=== PATIENT | female | born 1965 | race Caucasian/White ===

== ENCOUNTER → 2017-05-08 | Outpatient (CLI) | payer OTHER ==
[~2017-05-08] MED LIST: ATEN50TA2 PO; CENTTAB12 PO; CYCL10TA PO; DULE200A; GLYB25TA PO; LANS30CA PO; LISI-542 PO; MAXZTA PO; METF10004 PO; PREM.6256 PO; PROAAER10 INH; ZYRT10CA PO
--- NOTE | 2017-05-08 13:19 | REP ---
RENAL ULTRASOUND WITH DUPLEX DOPPLER RENAL ARTERY EVALUATION: Real-time sonographic evaluation of the kidney is performed and demonstrates both kidneys to be normal in size and echotexture, right kidney measuring 10.5 x 4.4 x 5.4 cm and the left kidney 11.4 x 5.0 x 4.6 cm. There is no renal mass, hydronephrosis or nephrolithiasis identified. The urinary bladder is mildly distended and grossly unremarkable. Real-time sonographic evaluation and duplex Doppler interrogation of the renal arteries is performed bilaterally. Peak sytolic velocity of the abdominal aorta at the level of the renal arteries is 74 cm/s. Peak systolic velocity of the main right renal artery at is origin is 128 cm/s, renal to aortic ratio 1.73. Resistive indices are measured in the upper, middle, and lower thirds of the right kidney and range between 0.65 and 0.68. Acceleration times range between 0.030 and 0.038. Peak systolic velocity of the main left renal artery at its origin is 146 cm/s, renal to aortic ratio is 1.97. Resistive indices of the left kidney range between 0.66 and 0.75. Acceleration times range between 0.037 and 0.043. IMPRESSION: Essentially negative renal ultrasound. There is no compelling duplex Doppler sonographic evidence of significant renal artery stenosis bilaterally. Signed by Rylan Junior MD 05/08/2017 05:00 P
== END ==
LOC: M RAD 07:38
PROVIDERS: ATTEND Internal Medicine Nephrology
DX: I12.9 Hypertensive chronic kidney disease with stage 1 through stage 4 chronic kidney disease, or unspecified chronic kidney disease (principal); N18.3 Chronic kidney disease, stage 3 (moderate)

== ENCOUNTER → 2017-07-07 | Outpatient (REF) | payer OTHER ==
[2017-07-07 14:16] LABS: MAGNESIUM URINE RANDOM 6.5 MG/DL
== END ==
LOC: M LAB REF 13:21
PROVIDERS: ATTEND Internal Medicine Nephrology
DX: N18.3 Chronic kidney disease, stage 3 (moderate) (principal)

== ENCOUNTER → 2017-12-02 | Outpatient (REF) | payer OTHER ==
[2017-12-02 20:00] LABS: FERRITIN 6 NG/ML (8-252); IRON (FE) 34 UG/DL (50-170); PERCENT SATURATION 7.1 % (13.2-45.0); TOTAL IRON BINDING CAPACITY 482 UG/DL (250-450)
[2017-12-02 20:12] LABS: MAGNESIUM URINE RANDOM 6.6 MG/DL
== END ==
LOC: M LAB REF 17:04
DX: E83.42 Hypomagnesemia (principal); N18.3 Chronic kidney disease, stage 3 (moderate); D63.1 Anemia in chronic kidney disease
CPT/HCPCS: 83550

== ENCOUNTER → 2018-04-01 | Outpatient (REF) | payer OTHER ==
[2018-04-01 18:43] LABS: FERRITIN 11 NG/ML (8-252); IRON (FE) 46 UG/DL (50-170); PERCENT SATURATION 8.9 % (13.2-45.0); TOTAL IRON BINDING CAPACITY 514 UG/DL (250-450)
== END ==
LOC: M LAB REF 17:25
DX: N18.9 Chronic kidney disease, unspecified (principal); D63.1 Anemia in chronic kidney disease

== ENCOUNTER 2018-07-17 06:47 | Outpatient (CLI) | payer OTHER ==
[2018-07-17] MEDS: IRON SUCROSE 25 MG in NS 50 ML IV (07:50)
[2018-07-17] MEDS: IRON SUCROSE 275 MG in NS 250 ML IV (09:03)
== END 2018-07-17 12:35 | disposition home or self-care (01) ==
LOC: M INFU 06:47
DX: D50.9 Iron deficiency anemia, unspecified (principal); K21.9 Gastro-esophageal reflux disease without esophagitis; N18.9 Chronic kidney disease, unspecified; E11.9 Type 2 diabetes mellitus without complications; K52.831 Collagenous colitis; I12.9 Hypertensive chronic kidney disease with stage 1 through stage 4 chronic kidney disease, or unspecified chronic kidney disease; Z79.84 Long term (current) use of oral hypoglycemic drugs; Z79.899 Other long term (current) drug therapy
CPT/HCPCS: J1756

== ENCOUNTER → 2018-12-04 | Outpatient (REF) | payer OTHER ==
[~2018-12-04] MED LIST changes: +ALLO100T PO; +CHLO25TA PO; +GLYB5TA PO; +HYDR-3910 PO; +MAGN500C2 PO; +METO1TAB7 PO; +PRED20TA PO; +SODI650T PO; +SPIR-10 PO
[2018-12-04 17:58] LABS: PERCENT SATURATION 18.7 % (13.2-45.0)
== END ==
LOC: M LAB REF 16:59
PROVIDERS: ATTEND Internal Medicine Nephrology
DX: D64.9 Anemia, unspecified (principal)

== ENCOUNTER → 2019-05-05 | Outpatient (CLI) | payer OTHER ==
--- NOTE | 2019-05-05 20:10 | REP ---
Chest x-ray: Two views. History: Mild asthma. Wheezing. No comparison study. Findings: The lungs are symmetrically aerated. Interstitial markings are somewhat prominent diffusely consistent with mild interstitial edema or. Heart is not enlarged. There is no pleural effusion visible. There is an old healed rib fracture on the right. Impression: Diffuse interstitial disease pattern in the bases bilaterally that nonspecific. Edema versus fibrosis. No focal infiltrate is appreciated. Electronically Signed by Alcon Dutton MD 05/05/2019 08:02 P
== END ==
LOC: M SMT 15:01
PROVIDERS: ATTEND Internal Medicine Pulmonary Disease
DX: J45.20 Mild intermittent asthma, uncomplicated (principal)

== ENCOUNTER → 2019-05-13 | Outpatient (REF) | payer OTHER ==
[~2019-05-13] MED LIST changes: +ALBU83IN NEB; +ALL10TAB29 PO; +ASPI81TAEC PO; +ATOR1TAB21 PO; +ATOR40TA75 PO; +BREO1INH3 INH; +CBD OIL TOP; +CENT1TAB9 PO; +CINN500C2 PO; +FLUT22IN INH; +FLUTISP NARES; +IPRA3SP; +IPRA3SP NARES; +LISI10TA4 PO; +MAG400TA PO; +MAGN400T2 PO; +METO50TA7 PO; +PREM0.6254 PO; +TORS20TA2 PO; +TRES100I SC; +TRIA1OI TOP; +TRIA1OI80 TOP; +TRUL10IN SC; +ZYLO300T6 PO
== END ==
LOC: M LAB REF 13:27
PROVIDERS: ATTEND Physician Assistant
DX: R06.00 Dyspnea, unspecified (principal)

== ENCOUNTER 2019-07-01 16:14 | Inpatient (IN) | payer OTHER ==
[~2019-07-01] VITALS: Ht 154.9 cm; Wt 64.5 kg
[~2019-07-01 16:14] MED LIST changes: -ALBU83IN NEB; -ALL10TAB29 PO; -ASPI81TAEC PO; -ATOR1TAB21 PO; -BREO1INH3 INH; -CBD OIL TOP; -CENT1TAB9 PO; -FLUT22IN INH; -FLUTISP NARES; -IPRA3SP NARES; -MAG400TA PO; -PREM0.6254 PO; -TRIA1OI TOP; -TRIA1OI80 TOP
[2019-07-01] MEDS ORDERED: NS 1,000 ML IV SCH (16:38)
[2019-07-01 17:18] LABS: BASO # 0.1 10^3/uL (0.0-0.2); BASO % 0.9 % (0.0-1.0); EOS # 0.4 10^3/uL (0.0-0.5); EOS % 3.4 % (0.0-3.0); HEMATOCRIT 33.8 % (36.0-47.0); HEMOGLOBIN 10.7 g/dl (12.0-15.5); LYMPH # 2.7 10^3/uL (1.5-5.0); LYMPH % 23.7 % (24.0-44.0); MEAN CORPUSCULAR HEMOGLOBIN 27.6 pg (27.0-33.0); MEAN CORPUSCULAR HGB CONC 31.7 g/dl (32.0-36.5); MEAN CORPUSCULAR VOLUME 87.3 fl (80.0-96.0); MONO # 0.8 10^3/uL (0.0-0.8); MONO % 6.6 % (0.0-5.0); NEUTROPHILS # 7.4 10^3/uL (1.5-8.5); NEUTROPHILS % 65.1 % (36.0-66.0); PLATELET COUNT, AUTOMATED 387 10^3/uL (150-450); RED BLOOD COUNT 3.87 10^6/uL (4.00-5.40); WHITE BLOOD COUNT 11.4 10^3/uL (4.0-10.0)
[2019-07-01] MEDS ORDERED: TRIA1OI TOP (17:39)
[2019-07-01] MEDS ORDERED: TRIA1OI80 TOP (17:39)
[2019-07-01 17:51] LABS: ALBUMIN 3.5 GM/DL (3.2-5.2); BILIRUBIN,DIRECT 0.1 MG/DL (0.0-0.2); BILIRUBIN,TOTAL 0.4 MG/DL (0.2-1.0); CALCIUM LEVEL 9.4 MG/DL (8.5-10.1); CREATININE FOR GFR 1.37 MG/DL (0.55-1.30); GLOMERULAR FILTRATION RATE 42.8 (>51); MB/CK RELATIVE INDEX 2.07 (< OR =4); POTASSIUM SERUM 4.3 MEQ/L (3.5-5.1); THYROID STIMULATING HORMONE 3.21 uIU/ML (0.358-3.740); TOTAL PROTEIN 6.8 GM/DL (6.4-8.2); TROPONIN I 0.11 NG/ML (< 0.10)
[2019-07-01] MEDS ORDERED: ISOVUE-370 76% 100ML VIAL (Q9967) As Ordered ONE (18:17)
--- NOTE | 2019-07-01 19:04 | REPVR ---
PROCEDURE INFORMATION: Exam: CT Angiography Chest With Contrast Exam date and time: 07/01/2019 6:29 PM Clinical history: 53 years old, female; Abnormal findings; Other: Elevated d-dimer; Shortness of breath; Additional info: SOB, elev d-dimer TECHNIQUE: Imaging protocol: Computed tomographic angiography of the chest with intravenous contrast. 3D rendering: MIP reconstructed images were created and reviewed. Radiation optimization: All CT scans at this facility use at least one of these dose optimization techniques: automated exposure control; mA and/or kV adjustment per patient size (includes targeted exams where dose is matched to clinical indication); or iterative reconstruction. Contrast material: ISOVUE 370; Contrast volume: 75 ml; Contrast route: IV; COMPARISON: CR CHEST 2 VIEWS 05/05/2019 3:18 PM FINDINGS: Pulmonary arteries: No focal pulmonary artery filling defect to suggest acute pulmonary embolus. Aorta: No abnormal dilatation of the thoracic aorta. Lungs: Pulmonary vascular/interstitial pattern does not suggest active pulmonary edema. No suspicious lung mass or air space process. No central endobronchial lesion. Pleural space: Small dependent bilateral transient density pleural effusions are present. No pneumothorax. Heart: Miniscule pericardial effusion and no overt cardiac enlargement. Lymph nodes: Small, nonspecific mediastinal nodes are present. Bones/joints: Bony structures show no acute fracture or destructive process. Soft tissues: No asymmetric abnormality of the extrathoracic soft tissues. IMPRESSION: 1. No evidence of acute pulmonary embolus. 2. Miniscule dependent bilateral pleural effusions without evidence of active pulmonary edema or focal pneumonia Electronically signed by: Sascha Smalls On 07/01/2019 19:04:12 PM
[2019-07-01] MEDS ORDERED: FLUTICASONE HFA 220 MCG 12 GM INHALER (FLOVENT) INH SCH (20:00)
[2019-07-01] MEDS ORDERED: GLUCOSE 4 GM CHEW TABLET PO PRN (20:30)
[2019-07-01] MEDS ORDERED: GLUCAGON FOR INJ 1 MG VIAL (J1610) SC PRN (20:30)
[2019-07-01] MEDS ORDERED: FUROSEMIDE 100 MG/10 ML VIAL (J1940) IV ONE (20:30)
[2019-07-01] MEDS ORDERED: MAALOX 30 ML SUSP *UDC PO PRN (20:30)
[2019-07-01] MEDS ORDERED: MOM 30ML SUSPENSION UDC PO PRN (20:30)
[2019-07-01] MEDS ORDERED: DEXTROSE 50% 50 ML SYRINGE IV PRN (20:30)
--- NOTE | 2019-07-01 20:45 | HPEPDOC ---
General Date of Admission 07/01/19 Date of Service: Jul 01, 2019 Chief Complaint The patient is a 53-year-old female admitted with a reason for visit of Sob/ Chest Tightness. Exam Limitations: No limitations Timing/Duration: Other Severity: Moderate (2-3 years) Associated Symptoms: Shortness of breath, Other (. Hoarseness of voice) History of Present Illness This is a pleasant 53 years old white female with past medical history of asthma as, COPD, CK-MB stage III, local cord dysfunction of unknown etiology, diabetes mellitus, has been experiencing shortness of breath since last 3 years and hoarseness and hoarseness of her Lantus since last 2-3 years. She is been under care with Dr. wild since last 6 months with asthma/COPD, but as per patient, the symptoms are not improving. On Friday, 2 days ago she had a pressure-like chest pain, nonradiating, persistent, associated with shortness of breath r esolved spontaneously after a few hours. No recurrence afterwards. Patient had a outpatient blood work done which showed d-dimer of 843, and patient was sent in the ED for CTA of chest to rule out pulmonary embolus.. CTA chest, essentially was negative for pulmonary embolus but considering patient's persistent symptoms bipedal edema and small pleural effusion. wanted this patient to be admitted for further workup including cardiac workup for CHF as patient has a elevated BNP as well. Patient denies chest pain at the present time, but persistent shortness of breath, no nausea, vomiting, no fever Home Medications Scheduled Allopurinol (Allopurinol) 100 Mg Tab, 300 MG PO DAILY, (Reported) Cannabidiol (Cbd Oil) Btl, 1,500 MG TOP DAILY, (Reported) USES ONE DROPPER DAILY FOR ARTHRITIS, TENDINITIS AND SLIPPED DISCS Cetirizine HCl (Cetirizine HCl) 10 Mg Tablet, 10 MG PO QHS, (Reported) Chlorthalidone (Chlorthalidone) 25 Mg Tab, 25 MG PO DAILY, (Reported) Estrogen,Con/M-Progest Acet (Prempro 0.625-5 mg Tablet) 1 Each Tablet, 0.5 TAB PO DAILY, (Reported) Fluticasone Propionate (Flovent Hfa) 220 Mcg/Act Aer.w.adap, 2 PUFF INH BID, (Reported) Fluticasone Propionate (Fluticasone Propionate) 16 Gm [place].susp, 2 SPRAY NARES BID, (Reported) Fluticasone/Vilanterol (Breo Ellipta 200-25 Mcg INH) 1 Each Blst.w.dev, 1 PUFF INH DAILY, (Reported) Glyburide (Glyburide) 5 Mg Tab, 5 MG PO DAILY, (Reported) Ipratropium [place] (Ipratropium [place]) 30 Ml [place], 1 SPRAY NARES BID, (Reported) Lansoprazole (Lansoprazole) 30 Mg Cap, 30 MG PO DAILY, (Reported) Lisinopril (Lisinopril) 5 Mg Tab, 5 MG PO DAILY, (Reported) Magnesium Oxide (Magnesium Oxide) 500 Mg Cap, 500 MG PO DAILY, (Reported) Magnesium Oxide (Magnesium Oxide) 500 Mg Capsule, 1,000 MG PO QPM, (Reported) Metformin HCl (Metformin HCl) 1,000 Mg Tab, 1,000 MG PO BID, (Reported) Metoprolol Succinate (Metoprolol Succinate) 50 Mg Tab, 50 TAB PO DAILY, (Reported) Multivit-Min/Iron/Folic/Lutein (Centrum [place] Tablet) 1 Each Tablet, 1 EACH PO DAILY, (Reported) Sodium Bicarbonate (Sodium Bicarbonate) 650 Mg Tab, 325 MG PO DAILY, (Reported) Spironolactone (Spironolactone) 25 Mg Tab, 25 MG PO QHS, (Reported) Triamcinolone Acet (Triamcinolone Acetonide 0.1% Oint) 15 Gm Oint...g., 1 APLCT TOP BID, (Reported) APPLY TO UNDERARMS FOR ECZEMA Scheduled PRN Albuterol Sulf (Albuterol Sulfate) 2.5 Mg/3 Ml Vial.neb, 1 VIAL NEB Q4HP PRN for wheezing, (Reported) Albuterol Sulfate (Proair Hfa) 108 Mcg/Act Aer, 1 PUFF INH Q4H PRN for SOB/WHEEZING, (Reported) Cyclobenzaprine HCl (Cyclobenzaprine HCl) 10 Mg Tab, 10 MG PO TID PRN for MUSCLE SPASMS, (Reported) Allergies Coded Allergies: Sulfa (Sulfonamide Antibiotics) (Verified Allergy, Unknown, 07/01/19) Past Medical History Medical History Asthma/COPD/C KD stage III/diabetes mellitus with hypertension/vocal cord Surgical History None Family History Significant Family History: No pertinent family hx Social History * Smoker: Denies Alcohol: Denies Drugs: denies A-FIB/CHADSVASC A-FIB History Current/History of A-Fib/PAF?: No Review of Systems Constitutional: Denies: Chills, Fever, Malaise, Night Sweats, Weakness, Fatigue, Weight Loss, Lethargy, Other Eyes: Denies: Pain, Vision change, Conjunctivae inflammation, Eyelid inflammation, Redness, Other ENT: Denies: Head Aches, Ear Pain, Dysphagia, Sinus Congestion, Post Nasal Drip, Sore Throat, Epistaxis, Other Symptoms Skin: Denies: Rash, Lesions, Jaundice, Bruising, Itching, Dry, Breakdown, Nail Changes, Other Pulmonary: Reports: Dyspnea Cardiovascular: Reports: Chest Pain Gastrointestinal: Denies: Nausea, Vomiting, Abdominal Pain, Diarrhea, Constipation, Melena, Hematochezia, Other Symptoms Genitourinary: Denies: Dysuria, Frequency, Incontinence, Hematuria, Retention, Other Symptoms Endocrine: Denies: Polydipsia, Polyphagia, Polyuria, Heat Intolerance, Cold Intolerance, Other Endocrine Sx Musculoskeletal: Denies: Neck Pain, Back Pain, Shoulder Pain, Arm Pain, Hand Pain, Leg Pain, Foot Pain, Joint Pain, Muscle Pain, Spasms, Other Symptoms Neurological: Denies: Weakness, Numbness, Incoordination, Change in speech, Confusion, Seizures, Other Symptoms Psych: Denies: Mood Normal, Anxiety, Depression, Memory Issues, Thoughts of Self Harm, Anger, Thoughts of Harming Other, Other Psych Physical Examination General Exam: Positive: Alert, Cooperative, Other (hoarseness otherwise noted) Eye Exam: Positive: PERRLA, Conjunctiva & lids normal ENT Exam: Positive: Atraumatic, Mucous membr. moist/pink, Other ENT (hoarseness of voice noted) Neck Exam: Positive: Supple Chest Exam: Positive: Diminished, Other (. Diminished breath sounds bilaterally but no wheezing, rales or rhonchi) Heart Exam: Positive: Rate Normal, Normal S1, Normal S2 Telemetry: Positive: Tachycardia Abdomen Exam: Positive: Normal bowel sounds, Soft Extremity Exam: Positive: Edema (1-2+ bipedal edema) Skin Exam: Positive: Nl turgor and temperature Neuro Exam: Positive: Normal Gait, Strength at 5/5 X4 ext, Sensation Intact Psych Exam: Positive: Mental status NL, Mood NL, Oriented x 3 Vital Signs Vital Signs Date Time Temp Pulse Resp B/P (MAP) Pulse Ox O2 Delivery O2 Flow Rate FiO2 07/01/19 17:15 Room Air 07/01/19 17:15 07/01/19 16:16 97.3 125 32 99 Laboratory Data Labs 24H Laboratory Tests 2 07/01/19 17:07: Immature Granulocyte % (Auto) 0.3, White Blood Count 11.4H, Red Blood Count 3.87L, Hemoglobin 10.7L, Hematocrit 33.8L, Mean Corpuscular Volume 87.3, Mean Corpuscular Hemoglobin 27.6, Mean Corpuscular Hemoglobin Concent 31.7L, Red Cell Distribution Width 13.9, Platelet Count 387, Neutrophils (%) (Auto) 65.1, Lymphocytes (%) (Auto) 23.7L, Monocytes (%) (Auto) 6.6H, Eosinophils (%) (Auto) 3.4H, Basophils (%) (Auto) 0.9, Neutrophils # (Auto) 7.4, Lymphocytes # (Auto) 2.7, Monocytes # (Auto) 0.8, Eosinophils # (Auto) 0.4, Basophils # (Auto) 0.1, Nucleated Red Blood Cells % (auto) 0.0, Anion Gap 10, Glomerular Filtration Rate 42.8L, Calcium Level 9.4, Aspartate Amino Transf (AST/SGOT) 55H, Alanine Aminotransferase (ALT/SGPT) 84H, Alkaline Phosphatase 71, Total Bilirubin 0.4, Direct Bilirubin 0.1, Total Creatine Kinase 241H, Creatine Kinase MB 5.0H, Creatine Kinase MB Relative Index 2.07, Troponin I 0.11H, FQ-Fvm-A-Type Natriuretic Peptide 3380H, Total Protein 6.8, Albumin 3.5, Albumin/Globulin Ratio 1.06, Thyroid Stimulating Hormone (TSH) 3.210 CBC/BMP Laboratory Tests 07/01/19 17:07 Red Blood Count 3.87 L, Mean Corpuscular Volume 87.3, Mean Corpuscular Hemoglobin 27.6, Mean Corpuscular Hemoglobin Concent 31.7 L, Red Cell Distribution Width 13.9, Neutrophils (%) (Auto) 65.1, Lymphocytes (%) (Auto) 23.7 L, Monocytes (%) (Auto) 6.6 H, Eosinophils (%) (Auto) 3.4 H, Basophils (%) (Auto) 0.9, Neutrophils # (Auto) 7.4, Lymphocytes # (Auto) 2.7, Monocytes # (Auto) 0.8, Eosinophils # (Auto) 0.4, Basophils # (Auto) 0.1 Problems (1) Chest pain Status: Acute Problem Text: 53 years old white female with past medical history of hypertension, diabetes mellitus, CK D3. Asthma, COPD, had developed chest pain on the eighth of this month, which had resolved spontaneously, but she is still complaining of consistent shortness of breath, which been present since last 2-3 years but has been getting worse since last 6 months. Considering multiple medical risk factors for CAD Admit patient under observation to PCU Telemetry monitoring Serial troponin Echocardiogram in a.m. Stat EKG has been ordered Stat chest x-ray has been ordered Closely monitor patient Lovenox for DVT prophylaxis Carbohydrate consistent Activity as tolerated (2) Shortness of breath Status: Acute Problem Text: Patient is under care with Dr. wild for asthma/COPD/br onchiectasis . She was sent pain with high d-dimer levels but she has ruled out pulmonary embolus on the basis of CT of chest Or shortness of breath, most likely secondary to asthma and COPD, but she also doesn't have a vocal cord dysfunction and bilateral pleural effusions with with bilateral pedal edema Echocardiogram has been ordered to rule out cor pulmonale as well Will stop all IV fluids Will give Lasix 60 mg IV 1 Monitor I&O's Continue home meds (3) Bilateral pleural effusion Status: Acute Problem Text: Patient has no history of CAD Bilateral effusion was seen on CTA chest Stat chest x-ray and EKG has been ordered IV diuretic 1 dose has been ordered (4) Vocal cord dysfunction Status: Chronic Problem Text: Patient has local card dysfunction as a last 2-3 years , She probably will benefit from ENT consultation. Please consider calling ENT consult in a.m. for direct laryngoscopy (5) CKD (chronic kidney disease), stage III Status: Chronic Problem Text: History of C KD stage III secondary to diabetes mellitus Continue home meds Monitor BUN/creatinine (6) Diabetes mellitus Status: Chronic Problem Text: Continue home meds And gastric blood sugar every before meals and at bedtime with coverage (7) HTN (hypertension) Status: Chronic Problem Text: Continue home meds Plan / VTE VTE Prophylaxis Ordered?: Yes JAREN MARTE MD Jul 01, 2019 20:45
[2019-07-01] MEDS: IPRATROPIUM 0.03% NASAL SPRAY 30 ML (ATROVENT) SCH (21:00)
[2019-07-01] MEDS: FLUTICASONE PROP 0.05% NASAL SPRAY 16 GM (FLONASE) NARES SCH (21:00)
[2019-07-01] MEDS ORDERED: metFORMIN (GLUCOPHAGE) 1000 MG TABLET PO SCH (21:00)
[2019-07-01] MEDS: HumaLOG INSULIN (NovoLOG) PER UNIT SC SCH (21:00)
[2019-07-01] MEDS: DOCUSATE SODIUM 100 MG CAP PO SCH (21:00)
[2019-07-01] MEDS: TRIAMCINOLONE ACET 0.1% OINTMENT 15 GM TOP SCH (21:00)
[2019-07-01] MEDS ORDERED: ALL10TAB29 PO (21:03)
[2019-07-01] MEDS ORDERED: FLUTISP NARES (21:03)
[2019-07-01] MEDS ORDERED: IPRA3SP NARES (21:03)
[2019-07-01] MEDS ORDERED: BREO1INH3 INH (21:03)
[2019-07-01] MEDS ORDERED: FLUT22IN INH (21:03)
[2019-07-01] MEDS ORDERED: CBD OIL TOP (21:03)
[2019-07-01] MEDS ORDERED: MAGN500C2 PO (21:03)
[2019-07-01] MEDS ORDERED: PREM0.6254 PO (21:03)
[2019-07-01] MEDS ORDERED: CENT1TAB9 PO (21:03)
[2019-07-01] MEDS ORDERED: ALBU83IN NEB (21:03)
[2019-07-01 21:30] VITALS: BP 153/93
[2019-07-01 21:50] VITALS: BP 130/84
[2019-07-01 22:25] VITALS: BP 130/84
[2019-07-01 23:54] LABS: CK-MB VALUE MASS 4.3 NG/ML (<3.6); MB/CK RELATIVE INDEX 2.02 (< OR =4); TROPONIN I 0.1 NG/ML (< 0.10)
[2019-07-01 23:59] VITALS: BP 131/82
[2019-07-02] MEDS ORDERED: CYCLOBENZAPRINE 10 MG TAB PO PRN (01:15)
[2019-07-02] MEDS ORDERED: ALBUTEROL SULFATE 2.5 MG/0.5 ML INH NEB SOLN NEB PRN (01:15)
[2019-07-02] MEDS ORDERED: ALBUTEROL 90 MCG/ACT 8GM HFA INHALER INH PRN (01:15)
[2019-07-02] MEDS: ACETAMINOPHEN TAB 650MG DOSE (2X325MG) PO PRN ×2 (01:37→20:38)
[2019-07-02] MEDS: CETIRIZINE (ZyrTEC) 10 MG TAB PO SCH ×2 (01:38→20:23)
[2019-07-02] MEDS: SPIRONOLACTONE 25 MG TAB PO SCH ×2 (01:38→20:23)
[2019-07-02 03:25] LABS: HEMATOCRIT 32.1 % (36.0-47.0); HEMOGLOBIN 10.4 g/dl (12.0-15.5); MEAN CORPUSCULAR HEMOGLOBIN 28.3 pg (27.0-33.0); MEAN CORPUSCULAR HGB CONC 32.4 g/dl (32.0-36.5); MEAN CORPUSCULAR VOLUME 87.2 fl (80.0-96.0); PLATELET COUNT, AUTOMATED 337 10^3/uL (150-450); RED BLOOD COUNT 3.68 10^6/uL (4.00-5.40); WHITE BLOOD COUNT 9.7 10^3/uL (4.0-10.0)
[2019-07-02 03:45] LABS: ALBUMIN 3.3 GM/DL (3.2-5.2); BILIRUBIN,TOTAL 0.4 MG/DL (0.2-1.0); CREATININE FOR GFR 1.52 MG/DL (0.55-1.30); GLOMERULAR FILTRATION RATE 37.9 (>51); POTASSIUM SERUM 4.2 MEQ/L (3.5-5.1); TOTAL PROTEIN 6.4 GM/DL (6.4-8.2); TROPONIN I 0.09 NG/ML (< 0.10)
[2019-07-02 04:00] VITALS: BP 129/84
--- NOTE | 2019-07-02 07:35 | ECGEPIP ---
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
--- NOTE | 2019-07-02 07:49 | REP ---
PA and lateral chest: Comparison is 05/05/2019. The lung rodriguez are clear. Cardiac size is mildly enlarged. The raghav, mediastinum, skeletal structures are unremarkable. Impression: Mild cardiomegaly, otherwise negative chest. Electronically Signed by Rylan Orozco MD 07/02/2019 07:40 A
[2019-07-02 08:00] VITALS: BP 142/92
[2019-07-02] MEDS ORDERED: FLUTICASONE HFA 220 MCG 12 GM INHALER (FLOVENT) INH SCH (09:00)
[2019-07-02] MEDS: DOCUSATE SODIUM 100 MG CAP PO SCH ×3 (09:00→20:27)
[2019-07-02] MEDS ORDERED: MAGNESIUM OXIDE 400 MG TAB (MAG-OX) PO SCH (09:00)
[2019-07-02] MEDS ORDERED: LISINOPRIL 5 MG TAB PO SCH (09:00)
[2019-07-02] MEDS: IPRATROPIUM 0.03% NASAL SPRAY 30 ML (ATROVENT) SCH ×2 (09:16→20:25)
[2019-07-02] MEDS: HumaLOG INSULIN (NovoLOG) PER UNIT SC SCH ×4 (09:16→20:39)
[2019-07-02] MEDS: FLUTICASONE PROP 0.05% NASAL SPRAY 16 GM (FLONASE) NARES SCH ×2 (09:17→20:24)
[2019-07-02] MEDS: PANTOPRAZOLE 20 MG TAB PO SCH (09:17)
[2019-07-02] MEDS: SODIUM BICARBONATE 325 MG TAB PO SCH (09:17)
[2019-07-02] MEDS: ALLOPURINOL 100 MG TAB PO SCH (09:17)
[2019-07-02] MEDS: METOPROLOL SUCC (TopROL XL) 50MG **XL** TAB PO SCH (09:18)
[2019-07-02] MEDS: TRIAMCINOLONE ACET 0.1% OINTMENT 15 GM TOP SCH ×2 (09:19→20:26)
[2019-07-02] MEDS: ENOXAPARIN 40 MG/0.4 ML SYRINGE (J1650) SC SCH (09:19)
[2019-07-02] MEDS: FUROSEMIDE 20 MG/2 ML VIAL (J1940) IV SCH ×2 (11:51→16:50)
--- NOTE | 2019-07-02 13:09 | IPNPDOC ---
Text Note Date of Service The patient was seen on 07/02/19. NOTE Subjective: Patient continues to complain of mild shortness of breath on exe rtion. She denies fever, chills, nausea, vomiting, palpitations, diarrhea or dysuria Objective: General Exam: Positive: Alert, Cooperative, Other (hoarseness otherwise noted) Eye Exam: Positive: PERRLA, Conjunctiva & lids normal ENT Exam: Positive: Atraumatic, Mucous membr. moist/pink, Other ENT (hoarseness of voice noted) Neck Exam: Positive: Supple Chest Exam: Positive: Diminished, Other (. Diminished breath sounds bilaterally but no wheezing, rales or rhonchi) Heart Exam: Positive: Rate Normal, Normal S1, Normal S2 Telemetry: Positive: Tachycardia Abdomen Exam: Positive: Normal bowel sounds, Soft Extremity Exam: Positive: Edema (1-2+ bipedal edema) Skin Exam: Positive: Nl turgor and temperature Neuro Exam: Positive: Normal Gait, Strength at 5/5 X4 ext, Sensation Intact Psych Exam: Positive: Mental status NL, Mood NL, Oriented x 3 Assessment/Plan Problems (1) Chest pain Resolved EKG did not show acute ischemic changes Troponin was mildly elevated on admission most likely secondary to demand ischemia. Trended down Status: Acute Echocardiogram pending (2) Shortness of breath Most likely due to CHF exacerbation. Patient never been diagnosed with CHF however BNP was elevated, and she has leg swelling, CTA showed bilateral pleural effusion. Also patient has most likely vocal cord dysfunction. ENT consult ordered Echo Lasix IV Monitor I&O's Continue home meds (3) Bilateral pleural effusion Most likely secondary to CHF exacerbation see above (4) Vocal cord dysfunction Status: Chronic ENT consult pending (5) CKD (chronic kidney disease), stage III Status: Chronic Problem Text: History of C KD stage III secondary to diabetes mellitus Continue home meds Monitor BUN/creatinine (6) Diabetes mellitus Glucose levels under control Status: Chronic Problem Text: Continue home meds And gastric blood sugar every before meals and at bedtime with coverage (7) HTN (hypertension) Status: Chronic Problem Text: Continue home meds Asthma Not in acute exacerbation Continue inhalers VS,Fishbone, I+O VS, Fishbone, I+O Laboratory Tests 07/01/19 17:07 Red Blood Count 3.87 L, Mean Corpuscular Volume 87.3, Mean Corpuscular Hemoglobin 27.6, Mean Corpuscular Hemoglobin Concent 31.7 L, Red Cell Distribution Width 13.9, Neutrophils (%) (Auto) 65.1, Lymphocytes (%) (Auto) 23.7 L, Monocytes (%) (Auto) 6.6 H, Eosinophils (%) (Auto) 3.4 H, Basophils (%) (Auto) 0.9, Neutrophils # (Auto) 7.4, Lymphocytes # (Auto) 2.7, Monocytes # (Auto) 0.8, Eosinophils # (Auto) 0.4, Basophils # (Auto) 0.1 07/02/19 03:06 Red Blood Count 3.68 L, Mean Corpuscular Volume 87.2, Mean Corpuscular Hemoglobin 28.3, Mean Corpuscular Hemoglobin Concent 32.4, Red Cell Distribution Width 13.8, Calcium Level 9.0, Aspartate Amino Transf (AST/SGOT) 44 H, Alanine Aminotransferase (ALT/SGPT) 75, Alkaline Phosphatase 63, Total Bilirubin 0.4, Total Protein 6.4, Albumin 3.3 Vital Signs Date Time Temp Pulse Resp B/P (MAP) Pulse Ox O2 Delivery O2 Flow Rate FiO2 07/02/19 09:18 99 142/92 07/02/19 08:00 98.0 17 99 07/01/19 17:15 Room Air I&O- Last 24 Hours up to 6 AM 07/02/19 06:00 Intake Total 140 ml Output Total 2120 ml Balance -1980 ml DINORAH MARIN DO Jul 02, 2019 13:09
[2019-07-02 16:00] VITALS: BP 152/84
[2019-07-02] MEDS: MAGNESIUM OXIDE 400 MG TAB (MAG-OX) PO SCH (16:50)
[2019-07-02] MEDS ORDERED: glyBURIDE 2.5 MG TAB PO SCH (17:30)
[2019-07-02] MEDS ORDERED: ISOVUE-370 76% 100ML VIAL (Q9967) As Ordered ONE (18:38)
--- NOTE | 2019-07-02 19:13 | REPVR ---
PROCEDURE INFORMATION: Exam: CT Neck With Contrast Exam date and time: 07/02/2019 6:53 PM Clinical history: 53 years old, female; Other: Malignancy TECHNIQUE: Imaging protocol: Computed tomography images of the neck with intravenous contrast. Radiation optimization: All CT scans at this facility use at least one of these dose optimization techniques: automated exposure control; mA and/or kV adjustment per patient size (includes targeted exams where dose is matched to clinical indication); or iterative reconstruction. Contrast material: ISOVUE 370; Contrast volume: 75 ml; Contrast route: IV; COMPARISON: No relevant prior studies available. FINDINGS: Nasopharynx: Unremarkable. Oropharynx: Unremarkable. No significant tonsillar enlargement. Hypopharynx: Unremarkable Larynx: Unremarkable. Normal epiglottis. Retropharyngeal space: Unremarkable. Submandibular/Parotid glands: Normal. Glands are normal in size. Thyroid: Normal. No enlarged or calcified nodules. Lymph nodes: Unremarkable. No lymphadenopathy. Trachea: Visualized trachea is unremarkable. Lungs: Unremarkable as visualized. Bones/joints: Unremarkable. No acute fracture. Soft tissues: Unremarkable. No significant soft tissue swelling. IMPRESSION: No mass, adenopathy, or fluid collection. Electronically signed by: Young Thorne On 07/02/2019 19:13:24 PM
[2019-07-02 20:00] VITALS: BP 154/78
[2019-07-02] MEDS: ASPIRIN 81 MG ENTERIC TAB PO SCH (20:28)
[2019-07-03] VITALS: BP 118/69
[2019-07-03 04:00] VITALS: BP 131/81
[2019-07-03 06:25] LABS: HEMATOCRIT 34.9 % (36.0-47.0); HEMOGLOBIN 11.4 g/dl (12.0-15.5); MEAN CORPUSCULAR HEMOGLOBIN 28.2 pg (27.0-33.0); MEAN CORPUSCULAR HGB CONC 32.7 g/dl (32.0-36.5); MEAN CORPUSCULAR VOLUME 86.4 fl (80.0-96.0); PLATELET COUNT, AUTOMATED 320 10^3/uL (150-450); RED BLOOD COUNT 4.04 10^6/uL (4.00-5.40); WHITE BLOOD COUNT 7.3 10^3/uL (4.0-10.0)
[2019-07-03 06:48] LABS: BLOOD UREA NITROGEN 29 MG/DL (7-18); CALCIUM LEVEL 9.9 MG/DL (8.5-10.1); CARBON DIOXIDE LEVEL 27 MEQ/L (21-32); CHLORIDE LEVEL 103 MEQ/L (98-107); CREATININE FOR GFR 1.56 MG/DL (0.55-1.30); GLOMERULAR FILTRATION RATE 36.8 (>51); GLUCOSE, FASTING 204 MG/DL (70-100); MAGNESIUM LEVEL 1.2 MG/DL (1.8-2.4); POTASSIUM SERUM 4.2 MEQ/L (3.5-5.1); SODIUM LEVEL 138 MEQ/L (136-145)
[2019-07-03 08:00] VITALS: BP 142/92
[2019-07-03] MEDS: HumaLOG INSULIN (NovoLOG) PER UNIT SC SCH ×4 (08:12→21:27)
[2019-07-03] MEDS: ENOXAPARIN 40 MG/0.4 ML SYRINGE (J1650) SC SCH (08:12)
[2019-07-03] MEDS: FUROSEMIDE 20 MG/2 ML VIAL (J1940) IV SCH (08:12)
[2019-07-03] MEDS: ALLOPURINOL 100 MG TAB PO SCH (08:13)
[2019-07-03] MEDS: DOCUSATE SODIUM 100 MG CAP PO SCH ×3 (08:13→21:00)
[2019-07-03] MEDS: ASPIRIN 81 MG ENTERIC TAB PO SCH (08:13)
[2019-07-03] MEDS: SODIUM BICARBONATE 325 MG TAB PO SCH (08:13)
[2019-07-03] MEDS: LISINOPRIL 10 MG TAB PO SCH (08:16)
[2019-07-03] MEDS: PANTOPRAZOLE 20 MG TAB PO SCH (08:17)
[2019-07-03] MEDS: MAGNESIUM OXIDE 400 MG TAB (MAG-OX) PO SCH ×3 (08:17→21:28)
[2019-07-03] MEDS: METOPROLOL SUCC (TopROL XL) 50MG **XL** TAB PO SCH (08:17)
[2019-07-03] MEDS: IPRATROPIUM 0.03% NASAL SPRAY 30 ML (ATROVENT) SCH ×2 (08:19→21:30)
[2019-07-03] MEDS: FLUTICASONE PROP 0.05% NASAL SPRAY 16 GM (FLONASE) NARES SCH ×2 (08:19→21:30)
[2019-07-03] MEDS: TRIAMCINOLONE ACET 0.1% OINTMENT 15 GM TOP SCH ×2 (08:24→21:29)
--- NOTE | 2019-07-03 08:32 | CR ---
DATE OF CONSULTATION: 07/02/2019 REFERRING PHYSICIAN: Dr. Shen REASON FOR CONSULT: Heart failure. HISTORY OF PRESENT ILLNESS: 53-year-old occasion male with a history of chronic obstructive pulmonary disease (COPD)/asthma, hypertension, diabetes mellitus, chronic kidney disease stage III as well as vocal cord dysfunction/hoarseness has been having increasing shortness of breath with activities, relieved with rest and associated with chest discomfort particularly when she goes up the stairs. She has been treated for asthma and recently treated for pneumonia. 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 This was followed by a chest CT and the patient was found to have findings consistent with heart failure. She was admitted for further management and monitoring. She had an echocardiogram done earlier today and it revealed a depressed left ventricular ejection fraction (LVEF), cardiology consult was called. When I saw Mrs. Daisy Clark this evening, she was in her room in no acute distress, very pleasant woman. She stated that she feels much better. She was given IV Lasix and she has passed a lot of urine, she has been having less shortness of breath with activities. She has been walking beyond the nursing station. She denies any chest pain. She denies any palpitations. She denies any fever or chills. She stated that her pedal edema has improved. She has a cough but denies any hemoptysis or fever. She has no focal manifestation. She denies any nausea, vomiting, diarrhea, melena or hematemesis. She has been dealing with vocal cord dysfunction and hoarseness, she is planning to see ear, nose, and throat (ENT), referred by Dr. Giles. PAST MEDICAL HISTORY: She has a past medical history positive for what was mentioned above, for hypertension, diabetes mellitus, COPD/asthma, chronic kidney disease stage III, allergies, gastroesophageal reflux disease, and gout, known valvular heart disease, known obesity, cardiomyopathy, transient ischemic attack (TIA)/ cerebrovascular accident (CVA), prior history of atrial fibrillation/flutter, cardiomyopathy, prior history of cardiomyopathy, sudden cardiac . MEDICATIONS AT HOME: - allopurinol 300 mg by mouth daily - cetirizine 10 mg by mouth by mouth daily - chlorthalidone 25 mg by mouth daily - Prempro 0.625/5 mg, half tablet by mouth daily - fluticasone propionate twice a day two spray in the nares. - Breo Ellipta one puff daily - glyburide 5 mg by mouth daily - ipratropium bromide one spray twice a day - lansoprazole 30 mg by mouth daily - lisinopril 5 mg p.o. daily - Magnesium oxide 500 mg by mouth daily - metformin 1000 mg by mouth twice a day - metoprolol succinate 50 mg p.o. daily - Centrum Silver for women, one tablet by mouth daily - spirolactone 25 mg by mouth daily - triamcinolone acetonide 0.1% ointment applied twice a day to the affected area. - Also as needed medication was albuterol sulfate and cyclobenzaprine 10 mg by mouth three times a day for muscle spasm. 115 grams and right twice a day and ST-T diarrhea. CURRENT MEDICATIONS: - Mag Ox 400 by mouth twice a day - Lovenox 40 mg subcu daily - allopurinol 300 mg by mouth daily - lisinopril 5 mg daily - metoprolol succinate 50 mg by mouth - sodium bicarbonate 205 mg by mouth daily - pantoprazole 20 mg by mouth daily - Lasix 20 mg IV twice a day, - Albuterol sulfate one puff every 4 hours as needed - Flexeril 10 mg by mouth three times a day as needed - Albuterol sulfate 2.5 mg every 4 hours as needed via nebulizer for shortness of breath and wheezing - docusate sodium 100 mg by mouth twice a day - Humalog insulin as directed - cetirizine 10 mg by mouth every morning - Flonase 0.05% two spray twice a day - Atrovent 0.03% one spray twice a day - spirolactone 25 mg by mouth every morning - Kenalog 0.1% twice a day - Tylenol 650 mg every 4 hours as needed for pain or fever - Milk of Magnesium 30 mL by mouth daily prn for constipation - Mylanta 30 mL by mouth daily as needed for dyspnea - D50 as well as glucose tablet and glucagon as needed for episode of hypoglycemia if any. PAST SURGICAL HISTORY: Unremarkable. FAMILY HISTORY: Positive for diabetes mellitus, hypertension. SOCIAL HISTORY: The patient denies any smoking, EtOH abuse or illicit drugs. She does use CBD oil ALLERGIES: SULFA and adverse reaction describes hives. ADVANCED DIRECTIVES: Patient is a FULL CODE. PHYSICAL EXAMINATION: The patient is alert and oriented, in no acute distress at the present. Her vital signs when I saw her earlier today reveal blood pressure of 152/84 with a pulse of 71, respiration 18-20 and maximum temperature was 98 degrees Fahrenheit with oxygen saturation of 98% on room air. Examination of the head: Atraumatic. Neck is supple and no jugular venous distention (JVD) appreciated. Lungs: Did not reveal any wheezing or crackles. The heart examination revealed normal sinus without gallops. The point of maximum impulse (PMI) is displaced inferiorly and laterally. There is no rub. I could not appreciate any murmurs. Abdomen is unremarkable. Extremities with only trace bilateral ankle edema. Neurological examination is negative for focal deficit. LABORATORY DATA: CBC revealed a WBC of 9.7, hemoglobin 10.4. [id number] and platelet 137,000. BMP revealed a sodium of 140, potassium 4.2, chloride 105, CO2 22, BUN 24, creatinine 1.52, fasting glucose 171, calcium 9.0, magnesium is 1.00. Liver enzymes revealed a total BUN 0.4, AST 44, ALT 75 alkaline phosphatase 63, total bilirubin 6.4, albumin 3.3. Serum ProBNP on admission was 3083 and today is 3784. Serum troponin initially was 0.11, then 0.12, then 0.09 and 0.06. Urinalysis revealed +1 bacteria, otherwise unremarkable. Echocardiogram on admission in the emergency room revealed normal sinus rhythm, tachycardiac at 114 beats per minute and nonspecific ST-T abnormalities, diffuse. No prior tracing at this time for comparison. IMPRESSION: Heart failure, acute and newly diagnosed and secondary to left ventricular systolic dysfunction. The patient has responded to the IV Lasix and will continue the same. We will monitor her BUN, creatinine and serum potassium. She was started on a baby aspirin daily and will continue her other medicines. I have increased angiotensin converting enzyme inhibitors (ADRIAN) inhibitor to better control her blood pressure. The chlorthalidone can be discontinued. Will continue the furosemide. She appears to be stable and she will be monitored over the weekend. I will discuss with her about proceeding with further cardiac evaluation, I will inform you of the findings and recommendations. While in the hospital, I will recheck her lipid profile. It was a pleasure to participate the care of Mrs. Daisy Clark for her underlying cardiac condition. I will continue to monitor along with you while in the hospital. She will benefit from a cardiac catheterization to assess her coronary anatomy. If she does not agree to go and proceed with the cardiac catheterization and wants to home, she might need a LifeVest to go home for primary prevention pending further cardiac workup and treatment.
[2019-07-03] MEDS: ACETAMINOPHEN TAB 650MG DOSE (2X325MG) PO PRN (08:37)
[2019-07-03] MEDS: LEVEMIR (INSULIN DETEMIR) 1 UNITS/0.01ML SC SCH ×2 (10:33→21:27)
[2019-07-03 11:39] LABS: CHOLESTEROL LEVEL 189 MG/DL (<200); CHOLESTEROL RISK RATIO 4.395 (<5); HDL CHOLESTEROL 43 MG/DL (>40); NON-HDL-C 146 MG/DL; TRIGLYCERIDES LEVEL 542 MG/DL (<150)
[2019-07-03 12:00] VITALS: BP 134/85
--- NOTE | 2019-07-03 12:04 | IPNPDOC ---
Text Note Date of Service The patient was seen on 07/03/19. NOTE Subjective: Patient continues to complain of mild shortness of breath on exe rtion. Overall her breathing improved She denies fever, chills, nausea, vomiting, palpitations, diarrhea or dysuria Objective: General Exam: Positive: Alert, Cooperative, Other (hoarseness otherwise noted) Eye Exam: Positive: PERRLA, Conjunctiva & lids normal ENT Exam: Positive: Atraumatic, Mucous membr. moist/pink, Other ENT (hoarseness of voice noted) Neck Exam: Positive: Supple, no JVD Chest Exam: Positive: Diminished, Other. Diminished breath sounds bilaterally but no wheezing, rales or rhonchi Heart Exam: Positive: Rate Normal, Normal S1, Normal S2 Telemetry: Positive: Tachycardia Abdomen Exam: Positive: Normal bowel sounds, Soft Extremity Exam: Positive: Edema (1-2+ bipedal edema) Skin Exam: Positive: Nl turgor and temperature Neuro Exam: Positive: Normal Gait, Strength at 5/5 X4 ext, Sensation Intact Psych Exam: Positive: Mental status NL, Mood NL, Oriented x 3 PROCEDURE INFORMATION: Exam: CT Neck With Contrast Exam date and time: 07/02/2019 6:53 PM Clinical history: 53 years old, female; Other: Malignancy TECHNIQUE: Imaging protocol: Computed tomography images of the neck with intravenous contrast. Radiation optimization: All CT scans at this facility use at least one of these dose optimization techniques: automated exposure control; mA and/or kV adjustment per patient size (includes targeted exams where dose is matched to clinical indication); or iterative reconstruction. Contrast material: ISOVUE 370; Contrast volume: 75 ml; Contrast route: IV; COMPARISON: No relevant prior studies available. FINDINGS: Nasopharynx: Unremarkable. Oropharynx: Unremarkable. No significant tonsillar enlargement. Hypopharynx: Unremarkable Larynx: Unremarkable. Normal epiglottis. Retropharyngeal space: Unremarkable. Submandibular/Parotid glands: Normal. Glands are normal in size. Thyroid: Normal. No enlarged or calcified nodules. Lymph nodes: Unremarkable. No lymphadenopathy. Trachea: Visualized trachea is unremarkable. Lungs: Unremarkable as visualized. Bones/joints: Unremarkable. No acute fracture. Soft tissues: Unremarkable. No significant soft tissue swelling. IMPRESSION: No mass, adenopathy, or fluid collection. Assessment/Plan Problems Chest pain Resolved EKG did not show acute ischemic changes Troponin was mildly elevated on admission most likely secondary to demand ischemia. Trended down Status: Acute Acute systolic CHF Echocardiogram shows severe systolic dysfunction Dr. Cruz consulted patient yesterday, he recommended to continue diuresis and transfer patient to [place] for cardiac catheterization on Friday. Edilson inhibitor have increased, chlorthalidone discontinued Shortness of breath Most likely due to CHF exacerbation. Patient never been diagnosed with CHF however BNP was elevated, and she has leg swelling, CTA showed bilateral pleural effusion. Also patient has most likely vocal cord dysfunction. ENT consult ordered Lasix IV Monitor I&O's Continue home meds (3) Bilateral pleural effusion Most likely secondary to CHF exacerbation see above (4) Vocal cord dysfunction Status: Chronic Await ENT consult CT of neck was negative for neoplastic masses (5) CKD (chronic kidney disease), stage III Status: Chronic Problem Text: History of C KD stage III secondary to diabetes mellitus Continue home meds Monitor BUN/creatinine (6) Diabetes mellitus Glucose levels under control Status: Chronic Problem Text: Continue home meds And gastric blood sugar every before meals and at bedtime with coverage (7) HTN (hypertension) Status: Chronic Problem Text: Continue home meds Asthma Not in acute exacerbation Continue inhalers VS,Fishbone, I+O VS, Fishbone, I+O Laboratory Tests 07/03/19 05:59 Red Blood Count 4.04, Mean Corpuscular Volume 86.4, Mean Corpuscular Hemoglobin 28.2, Mean Corpuscular Hemoglobin Concent 32.7, Red Cell Distribution Width 13.6 Vital Signs Date Time Temp Pulse Resp B/P (MAP) Pulse Ox O2 Delivery O2 Flow Rate FiO2 07/03/19 08:16 131/81 07/03/19 08:00 97.6 101 18 98 07/01/19 17:15 Room Air I&O- Last 24 Hours up to 6 AM 07/03/19 05:59 Intake Total 1140 ml Output Total 4350 ml Balance -3210 ml DINORAH MARIN DO Jul 03, 2019 12:04
[2019-07-03 20:00] VITALS: BP 127/75
--- NOTE | 2019-07-03 20:51 | IPN ---
DATE: 07/03/2019 Mrs. Daisy Clark was seen earlier today. She was seen in her room in no acute distress at rest. She was initially admitted on 07/01/2019 with shortness and chest discomfort. As an outpatient, she was being treated for chronic obstructive pulmonary disease (COPD)/asthma. She was found to be in heart failure, and further workup revealed an left ventricular ejection fraction (LVEF) estimated at about 30%. Cardiology consult was called, and the patient was seen yesterday in the evening. Her cardiac medications were readjusted. Her lisinopril was increased. She was started on a baby aspirin. As outpatient, she has been having progressive shortness of breath with activities and chest discomfort. She denies any palpitations. She was treated with intravenous (IV) Lasix, and her shortness of breath has improved significantly. She had no orthopnea, paroxysmal nocturnal dyspnea (PND), or palpitations. She has no pedal edema. She has no focal manifestation, and there is no bleeding reported. PHYSICAL EXAMINATION: The patient is alert and oriented in no acute distress at rest. Her vital signs when I saw her earlier today revealed a blood pressure of 142/92 with a pulse that varied between 80 and 100, respirations 18, and the maximum temperature was 97.6 degrees Fahrenheit with an oxygenation of 98% on room air. She had a negative fluid balance of 4 liters for 07/02/2019. Examination of the head: Atraumatic. Neck is supple and no jugular venous distention (JVD) appreciated. Lungs were clear bilaterally without any wheezing or crackles. The heart examination revealed irregular heart sounds without gallops. The point of maximal impulse (PMI) is not displaced. There is no rub. Abdomen is unremarkable. Extremities reveal no pedal edema. Neurologic examination grossly is negative for focal deficit. LABORATORY DATA: CBC done today revealed a WBC of 7.3, hemoglobin 11, hematocrit 34.9, and platelets 320,000. BMP revealed a sodium of 138, potassium 4.2, chloride 103, CO2 of 27, BUN 29, creatinine 1.56, GFR 36.8, fasting glucose 204, and calcium 9.9. Serum magnesium was 1.2. Lipid profile revealed total cholesterol of 189, triglycerides 542, LDL cholesterol 146, and total cholesterol/LDL ratio of 4.39. A 53-year-old woman with hypertension, diabetes mellitus, and hyperlipidemia was admitted on 07/01/2019 with progressive shortness of breath and chest discomfort. She was found to be in heart failure, and her echocardiogram revealed an LVEF estimated about 30%. The patient now is stable without any chest pain but with mild shortness of breath with activities. Her diagnostic was discussed with her, and a cardiac catheterization was recommended. She is in agreement to proceed. In the meantime, I have stopped her furosemide temporarily to preserve her kidney function. The metformin already was discontinued. The cardiac catheterization will be arranged for her. Her lipid profile was checked today, and LDL cholesterol is about 146 mg/dL. She would benefit from treatment, and she will be started on generic Lipitor or generic Crestor. It was a pleasure to participate in the care of Mrs. Daisy Sim for her underlying cardiac condition. I will continue to monitor her along with you in the hospital. We had a long discussion about her diagnostic and the treatment plan, and all her questions were answered.
[2019-07-03] MEDS: CETIRIZINE (ZyrTEC) 10 MG TAB PO SCH (21:28)
[2019-07-03] MEDS: SPIRONOLACTONE 25 MG TAB PO SCH (21:28)
[2019-07-04] VITALS (7 sets, daily range): BP systolic 113–148; BP diastolic 66–92
[2019-07-04 06:17] LABS: HEMATOCRIT 34.3 % (36.0-47.0); MEAN CORPUSCULAR HEMOGLOBIN 27.5 pg (27.0-33.0); MEAN CORPUSCULAR HGB CONC 32.1 g/dl (32.0-36.5); MEAN CORPUSCULAR VOLUME 85.8 fl (80.0-96.0); PLATELET COUNT, AUTOMATED 337 10^3/uL (150-450); WHITE BLOOD COUNT 7.8 10^3/uL (4.0-10.0)
[2019-07-04 06:38] LABS: CALCIUM LEVEL 9.7 MG/DL (8.5-10.1); CREATININE FOR GFR 1.55 MG/DL (0.55-1.30); GLOMERULAR FILTRATION RATE 37.1 (>51); MAGNESIUM LEVEL 1.5 MG/DL (1.8-2.4); POTASSIUM SERUM 4.3 MEQ/L (3.5-5.1)
--- NOTE | 2019-07-04 07:54 | ECHO ---
DATE OF SERVICE: 07/02/2019 REFERRING PROVIDER: Dr. Santosh Shen PATIENT LOCATION: Room 3227 REASON FOR ECHOCARDIOGRAM: Chest pain, shortness of breath. 2D MEASUREMENTS: IVS: 0.8 cm LV: 5.4 cm LVPW: 1.1 cm LA: 3.5 cm Aorta: 2.5 cm RV: 2.8 cm IVC: 2.0 cm DOPPLER MEASUREMENTS: Peak velocity across the aortic valve: 1.3 m/s Peak velocity across the LVOT: 0.74 m/s Mitral E: 1.0 Mitral A: 0.54 with a ratio of 1.9 Maximum tricuspid valve velocity: 2.9 m/s 2D COMMENTS: 1. Borderline enlarged left ventricle, with normal left ventricular wall thickness, but a depressed global left ventricular systolic function. There was moderate global hypokinesis and the estimated left ventricular systolic ejection fraction is 30 to 35%. The anterior septum seems to be more hypokinetic. 2. Normal left atrium. Normal right atrium and right ventricle. 3. The atrial septum appeared to be normal without evidence of defect or shunt. 4. Normal aortic root. 5. Trace to small pericardial effusion noted, no evidence of cardiac tamponade. 6. Aortic valve, mitral valve, and tricuspid valve appear to be normal. The pulmonic valve and proximal pulmonary artery branches were not well visualized. 7. The inferior vena cava was mildly enlarged, central venous pressure might be elevated. Doppler, it detects mild mitral regurgitation, mild tricuspid regurgitation. The calculated pulmonary artery systolic pressure varies between 40 to 50 mmHg. Abnormal relaxation pattern was noted across the mitral valve annulus, left ventricular end diastolic pressure might be elevated. IMPRESSION: 1. Moderate global left ventricular systolic dysfunction. There are some features of left ventricular diastolic dysfunction, grade 2. 2. Mild mitral regurgitation. 3. Mild tricuspid regurgitation with probably moderate pulmonary hypertension. 4. Trace to small pericardial effusion, no evidence of cardiac tamponade.
--- NOTE | 2019-07-04 08:03 | CR ---
DATE OF CONSULTATION: 07/03/2019 REASON FOR CONSULTATION: Dysphonia. HISTORY OF PRESENT ILLNESS: This 53-year-old woman has been admitted to the hospital due to shortness of breath and possible heart failure. She has noticed her voice being intermittently strained for the past several months. She is able to tolerate oral intake including liquids and solids without much difficulty. She has no prior surgery done in the head and neck region. She has not noticed unusual neck mass. A CT scan of the neck performed on July 02, 2019 showed no evidence of mass, lesion or severe lymphadenopathy. At this time, the patient is scheduled to be transferred to [place] for angiogram to assess the extent of her underlying heart failure. PAST MEDICAL HISTORY: Hypertension. Diabetes. Chronic obstructive pulmonary disease (COPD)/asthma. Chronic renal failure stage III. Gout. Transient ischemic attack (TIA). Cardiomyopathy. MEDICATIONS: Reviewed. This patient is using albuterol as needed for shortness of breath. PAST SURGICAL HISTORY: None. FAMILY HISTORY: Diabetes and hypertension. SOCIAL HISTORY: Patient is a nonsmoker. Non alcohol user. Non drug user. ALLERGIES: SULFA. PHYSICAL EXAMINATION: On examination, the patient appeared in no acute distress. The patient's voice is strained. No stridor or wheezes. No use of the accessory cervical muscles. Ear: Normal external pinna. Nose: Normal external nasal anatomy. No hypertrophy of the nasal turbinates. Oral cavity: Oral cavity moist. Tongue midline. Face: Normocephalic with symmetrical facial motion. Neck: No palpable cervical lymphadenopathy. Trachea midline. No thyromegaly. IMPRESSION: This 53-year-old woman who has been admitted for heart failure has a longstanding history of strained voice for the past several months. A CT of the neck was negative. 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 Due to the patient's underlying acute cardiac issues, I do not wish to place any undue stress on her cardiovascular system via doing the flexible laryngoscopy at this time. I advised the patient that I will see her again in followup in my office in about 1-2 weeks after discharge from the hospital.
[2019-07-04] MEDS: ENOXAPARIN 40 MG/0.4 ML SYRINGE (J1650) SC SCH (08:37)
[2019-07-04] MEDS: LEVEMIR (INSULIN DETEMIR) 1 UNITS/0.01ML SC SCH ×2 (08:38→20:41)
[2019-07-04] MEDS: ATORVASTATIN 20 MG TAB PO SCH (08:38)
[2019-07-04] MEDS: HumaLOG INSULIN (NovoLOG) PER UNIT SC SCH ×4 (08:38→20:40)
[2019-07-04] MEDS: ALLOPURINOL 100 MG TAB PO SCH (08:39)
[2019-07-04] MEDS: SODIUM BICARBONATE 325 MG TAB PO SCH (08:42)
[2019-07-04] MEDS: MAGNESIUM OXIDE 400 MG TAB (MAG-OX) PO SCH ×3 (08:42→20:40)
[2019-07-04] MEDS: METOPROLOL SUCC (TopROL XL) 50MG **XL** TAB PO SCH (08:42)
[2019-07-04] MEDS: PANTOPRAZOLE 20 MG TAB PO SCH (08:42)
[2019-07-04] MEDS: LISINOPRIL 10 MG TAB PO SCH (08:42)
[2019-07-04] MEDS: ASPIRIN 81 MG ENTERIC TAB PO SCH (08:42)
[2019-07-04] MEDS: IPRATROPIUM 0.03% NASAL SPRAY 30 ML (ATROVENT) SCH ×2 (08:45→20:42)
[2019-07-04] MEDS: FLUTICASONE PROP 0.05% NASAL SPRAY 16 GM (FLONASE) NARES SCH ×2 (08:45→20:41)
[2019-07-04] MEDS: TRIAMCINOLONE ACET 0.1% OINTMENT 15 GM TOP SCH ×2 (08:46→20:43)
[2019-07-04] MEDS: PREMPRO PO SCH (08:49)
[2019-07-04] MEDS: ACETAMINOPHEN TAB 650MG DOSE (2X325MG) PO PRN (08:49)
[2019-07-04] MEDS: DOCUSATE SODIUM 100 MG CAP PO SCH ×2 (08:51→20:40)
--- NOTE | 2019-07-04 11:45 | IPNPDOC ---
Text Note Date of Service The patient was seen on 07/04/19. NOTE Subjective: No any acute events overnight. Overall her breathing improved She denies fever, chills, nausea, vomiting, palpitations, diarrhea or dysuria Objective: General Exam: Positive: Alert, Cooperative, Other (hoarseness otherwise noted) Eye Exam: Positive: PERRLA, Conjunctiva & lids normal ENT Exam: Positive: Atraumatic, Mucous membr. moist/pink, Other ENT (hoarseness of voice noted) Neck Exam: Positive: Supple, no JVD Chest Exam: Positive: Diminished, Other. Diminished breath sounds bilaterally but no wheezing, rales or rhonchi Heart Exam: Positive: Rate Normal, Normal S1, Normal S2 Telemetry: Positive: Tachycardia Abdomen Exam: Positive: Normal bowel sounds, Soft Extremity Exam: Positive: Edema (1-2+ bipedal edema) Skin Exam: Positive: Nl turgor and temperature Neuro Exam: Positive: Normal Gait, Strength at 5/5 X4 ext, Sensation Intact Psych Exam: Positive: Mental status NL, Mood NL, Oriented x 3 DATE OF SERVICE: 07/02/2019 REFERRING PROVIDER: Dr. Santosh Shen PATIENT LOCATION: Room 3227 REASON FOR ECHOCARDIOGRAM: Chest pain, shortness of breath. 2D MEASUREMENTS: IVS: 0.8 cm LV: 5.4 cm LVPW: 1.1 cm LA: 3.5 cm Aorta: 2.5 cm RV: 2.8 cm IVC: 2.0 cm DOPPLER MEASUREMENTS: Peak velocity across the aortic valve: 1.3 m/s Peak velocity across the LVOT: 0.74 m/s Mitral E: 1.0 Mitral A: 0.54 with a ratio of 1.9 Maximum tricuspid valve velocity: 2.9 m/s 2D COMMENTS: 1. Borderline enlarged left ventricle, with normal left ventricular wall thickness, but a depressed global left ventricular systolic function. There was moderate global hypokinesis and the estimated left ventricular systolic ejection fraction is 30 to 35%. The anterior septum seems to be more hypokinetic. 2. Normal left atrium. Normal right atrium and right ventricle. 3. The atrial septum appeared to be normal without evidence of defect or shunt. 4. Normal aortic root. 5. Trace to small pericardial effusion noted, no evidence of cardiac tamponade. 6. Aortic valve, mitral valve, and tricuspid valve appear to be normal. The pulmonic valve and proximal pulmonary artery branches were not well visualized. 7. The inferior vena cava was mildly enlarged, central venous pressure might be elevated. Doppler, it detects mild mitral regurgitation, mild tricuspid regurgitation. The calculated pulmonary artery systolic pressure varies between 40 to 50 mmHg. Abnormal relaxation pattern was noted across the mitral valve annulus, left ventricular end diastolic pressure might be elevated. IMPRESSION: 1. Moderate global left ventricular systolic dysfunction. There are some features of left ventricular diastolic dysfunction, grade 2. 2. Mild mitral regurgitation. 3. Mild tricuspid regurgitation with probably moderate pulmonary hypertension. 4. Trace to small pericardial effusion, no evidence of cardiac tamponade. Assessment/Plan Patient is 53 years old female with past medical history of asthma, COPD presented hospital with increased shortness of breath. Patient was found to have acute systolic CHF with ejection fraction 30%. Problems Chest pain Resolved EKG did not show acute ischemic changes Troponin was mildly elevated on admission most likely secondary to demand ischemia. Trended down Status: Acute Acute systolic CHF Echocardiogram shows severe systolic dysfunction Dr. Cruz recommended to transfer patient to [facility] for cardiac catheterization on Friday. Edilson inhibitor have increased, chlorthalidone discontinued Patient has good urine output. Lasix has been stopped due to rising creatinine Shortness of breath Most likely due to CHF exacerbation. Patient never been diagnosed with CHF however BNP was elevated, and she has leg swelling, CTA showed bilateral pleural effusion. Also patient has most likely vocal cord dysfunction. Monitor I&O's Continue home meds (3) Bilateral pleural effusion Most likely secondary to CHF exacerbation see above (4) Vocal cord dysfunction Status: Chronic CT of neck was negative for neoplastic masses ENT consulted patient, recommended follow-up in the outpatient settings (5) CKD (chronic kidney disease), stage III Status: Chronic Problem Text: History of CKD stage III secondary to diabetes mellitus Continue home meds Monitor BUN/creatinine Lasix was discontinued due to rising creatinine (6) Diabetes mellitus Glucose levels under control Status: Chronic Problem Text: Continue home meds And gastric blood sugar every before meals and at bedtime with coverage (7) HTN (hypertension) Status: Chronic Problem Text: Continue home meds Asthma Not in acute exacerbation Continue inhalers Hyperlipidemia Lipitor added VS,Fishbone, I+O VS, Fishbone, I+O Laboratory Tests 07/04/19 05:45 Red Blood Count 4.00, Mean Corpuscular Volume 85.8, Mean Corpuscular Hemoglobin 27.5, Mean Corpuscular Hemoglobin Concent 32.1, Red Cell Distribution Width 13.5, Calcium Level 9.7 Vital Signs Date Time Temp Pulse Resp B/P (MAP) Pulse Ox O2 Delivery O2 Flow Rate FiO2 07/04/19 08:00 97.8 111 18 144/92 (109) 97 07/01/19 17:15 Room Air I&O- Last 24 Hours up to 6 AM 07/04/19 05:59 Intake Total 1900 ml Output Total 2800 ml Balance -900 ml DINORAH MARIN DO Jul 04, 2019 11:45
[2019-07-04] MEDS: SPIRONOLACTONE 25 MG TAB PO SCH (20:38)
[2019-07-04] MEDS: CETIRIZINE (ZyrTEC) 10 MG TAB PO SCH (20:40)
[2019-07-04] MEDS ORDERED: CLOPIDOGREL 300 MG TAB (PLAVIX) PO STA (21:44)
[2019-07-05 04:00] VITALS: BP 129/83
[2019-07-05 06:11] LABS: HEMATOCRIT 38.2 % (36.0-47.0); HEMOGLOBIN 11.9 g/dl (12.0-15.5); MEAN CORPUSCULAR HEMOGLOBIN 27.4 pg (27.0-33.0); MEAN CORPUSCULAR HGB CONC 31.2 g/dl (32.0-36.5); MEAN CORPUSCULAR VOLUME 87.8 fl (80.0-96.0); PLATELET COUNT, AUTOMATED 292 10^3/uL (150-450); RED BLOOD COUNT 4.35 10^6/uL (4.00-5.40); WHITE BLOOD COUNT 7.2 10^3/uL (4.0-10.0)
[2019-07-05 06:22] LABS: CALCIUM LEVEL 9.6 MG/DL (8.5-10.1); CREATININE FOR GFR 1.64 MG/DL (0.55-1.30); GLOMERULAR FILTRATION RATE 34.8 (>51); MAGNESIUM LEVEL 1.8 MG/DL (1.8-2.4); POTASSIUM SERUM 5.1 MEQ/L (3.5-5.1)
[2019-07-05 08:00] VITALS: BP 116/69
[2019-07-05] MEDS: PANTOPRAZOLE 20 MG TAB PO SCH (08:48)
[2019-07-05] MEDS: ATORVASTATIN 20 MG TAB PO SCH (08:48)
[2019-07-05] MEDS: MAGNESIUM OXIDE 400 MG TAB (MAG-OX) PO SCH (08:48)
[2019-07-05 08:49] VITALS: BP 116/69
[2019-07-05] MEDS: SODIUM BICARBONATE 325 MG TAB PO SCH (08:49)
[2019-07-05] MEDS: PREMPRO PO SCH (08:49)
[2019-07-05] MEDS: METOPROLOL SUCC (TopROL XL) 50MG **XL** TAB PO SCH (08:49)
[2019-07-05] MEDS: ALLOPURINOL 100 MG TAB PO SCH (08:49)
[2019-07-05] MEDS: ASPIRIN 81 MG ENTERIC TAB PO SCH (08:49)
[2019-07-05] MEDS: ENOXAPARIN 40 MG/0.4 ML SYRINGE (J1650) SC SCH (08:50)
[2019-07-05] MEDS: ACETAMINOPHEN TAB 650MG DOSE (2X325MG) PO PRN (08:50)
[2019-07-05] MEDS: LEVEMIR (INSULIN DETEMIR) 1 UNITS/0.01ML SC SCH (08:50)
[2019-07-05] MEDS: HumaLOG INSULIN (NovoLOG) PER UNIT SC SCH ×2 (08:51→13:30)
[2019-07-05] MEDS: DOCUSATE SODIUM 100 MG CAP PO SCH (08:52)
[2019-07-05] MEDS: IPRATROPIUM 0.03% NASAL SPRAY 30 ML (ATROVENT) SCH (08:58)
[2019-07-05] MEDS: FLUTICASONE PROP 0.05% NASAL SPRAY 16 GM (FLONASE) NARES SCH (08:58)
[2019-07-05] MEDS: TRIAMCINOLONE ACET 0.1% OINTMENT 15 GM TOP SCH (08:59)
[2019-07-05] MEDS ORDERED: BREO ELLIPTA INH SCH (09:00)
[2019-07-05] MEDS ORDERED: ATOR1TAB21 PO (11:43)
[2019-07-05] MEDS ORDERED: MAG400TA PO (11:43)
[2019-07-05] MEDS ORDERED: METO1TAB7 PO (11:43)
[2019-07-05] MEDS ORDERED: ASPI81TAEC PO (11:43)
[2019-07-05 12:00] VITALS: BP 118/70
--- NOTE | 2019-07-05 15:31 | DS.PDOC ---
Discharge Summary General Date of Admission Jul 03, 2019 at 16:56 Date of Discharge 07/05/19 Attending Physician: DINORAH MARIN DO Discharge Summary PROCEDURES PERFORMED DURING STAY: None ADMITTING DIAGNOSES: Chest pain Acute systolic CHF Shortness of breath Bilateral pleural effusion Vocal cord dysfunction CKD (chronic kidney disease), stage III Diabetes mellitus HTN (hypertension) Asthma Hyperlipidemia DISCHARGE DIAGNOSES: Chest pain Acute systolic CHF Shortness of breath Bilateral pleural effusion Vocal cord dysfunction CKD (chronic kidney disease), stage III Diabetes mellitus HTN (hypertension) Asthma Hyperlipidemia COMPLICATIONS/CHIEF COMPLAINT: Bilateral Pleural Effusion, Shortness Of Breath. HISTORY OF PRESENT ILLNESS: 53-year-old occasion male with a history of chronic obstructive pulmonary disease (COPD)/asthma, hypertension, diabetes mellitus, chronic kidney disease stage III as well as vocal cord dysfunction/hoarseness has been having increasing shortness of breath with activities, relieved with rest and associated with chest discomfort particularly when she goes up the stairs. She has been treated for asthma and recently treated for pneumonia. On the recent followup at her [employer] office, she was told shortness of breath is not related to her asthma and a D-dimer was ordered and it was elevated. This was followed by a chest CT and the patient was found to have findings consistent with heart failure. She was admitted for further management and monitoring. She had an echocardiogram done earlier today and it revealed a depressed left ventricular ejection fraction (LVEF), cardiology consult was called. She was given IV Lasix and she has passed a lot of urine, she has been having less shortness of breath with activities. She has been walking beyond the nursing station. She denies any chest pain. She denies any palpitations. She denies any fever or chills. She stated that her pedal edema has improved. She has a cough but denies any hemoptysis or fever. She has no focal manifestation. She denies any nausea, vomiting, diarrhea, melena or hematemesis. She has been dealing with vocal cord dysfunction and hoarseness, she is planning to see ear, nose, and throat (ENT), referred by Dr. Giles. HOSPITAL COURSE: During hospital stay following issue addressed Chest pain Resolved EKG did not show acute ischemic changes Troponin was mildly elevated on admission most likely secondary to demand ischemia. Trended down Acute systolic CHF Echocardiogram shows severe systolic dysfunction Dr. Cruz recommended to transfer patient to [place] for cardiac catheterization Edilson inhibitor have increased, chlorthalidone discontinued Patient has good urine output. Lasix has been stopped due to rising creatinine Shortness of breath Most likely due to CHF exacerbation. Patient never been diagnosed with CHF however BNP was elevated, and she has leg swelling, CTA showed bilateral pleural effusion. Also patient has most likely vocal cord dysfunction. Monitor I&O's (3) Bilateral pleural effusion Most likely secondary to CHF exacerbation see above (4) Vocal cord dysfunction Status: Chronic CT of neck was negative for neoplastic masses ENT consulted patient, recommended follow-up in the outpatient settings (5) CKD (chronic kidney disease), stage III Status: Chronic Problem Text: History of CKD stage III secondary to diabetes mellitus Continue home meds Monitor BUN/creatinine Lasix was discontinued due to rising creatinine (6) Diabetes mellitus Glucose levels under control Status: Chronic Problem Text: Continue home meds And gastric blood sugar every before meals and at bedtime with coverage (7) HTN (hypertension) Status: Chronic Problem Text: Continue home meds Asthma Not in acute exacerbation Continue inhalers Hyperlipidemia Lipitor added DISCHARGE MEDICATIONS: Please see below. ALLERGIES: Please see below. PHYSICAL EXAMINATION ON DISCHARGE: VITAL SIGNS: Please see below. General Exam: Positive: Alert, Cooperative, Other (hoarseness otherwise noted) Eye Exam: Positive: PERRLA, Conjunctiva & lids normal ENT Exam: Positive: Atraumatic, Mucous membr. moist/pink, Other ENT (hoarseness of voice noted) Neck Exam: Positive: Supple, no JVD Chest Exam: Positive: Diminished, Other. Diminished breath sounds bilaterally but no wheezing, rales or rhonchi Heart Exam: Positive: Rate Normal, Normal S1, Normal S2 Telemetry: Positive: Tachycardia Abdomen Exam: Positive: Normal bowel sounds, Soft Extremity Exam: Positive: Edema (1-2+ bipedal edema) Skin Exam: Positive: Nl turgor and temperature Neuro Exam: Positive: Normal Gait, Strength at 5/5 X4 ext, Sensation Intact Psych Exam: Positive: Mental status NL, Mood NL, Oriented x 3 LABORATORY DATA: Please see below. IMAGIND COMMENTS: 1. Borderline enlarged left ventricle, with normal left ventricular wall thickness, but a depressed global left ventricular systolic function. There was moderate global hypokinesis and the estimated left ventricular systolic ejection fraction is 30 to 35%. The anterior septum seems to be more hypokinetic. 2. Normal left atrium. Normal right atrium and right ventricle. 3. The atrial septum appeared to be normal without evidence of defect or shunt. 4. Normal aortic root. 5. Trace to small pericardial effusion noted, no evidence of cardiac tamponade. 6. Aortic valve, mitral valve, and tricuspid valve appear to be normal. The pulmonic valve and proximal pulmonary artery branches were not well visualized. 7. The inferior vena cava was mildly enlarged, central venous pressure might be elevated. Doppler, it detects mild mitral regurgitation, mild tricuspid regurgitation. The calculated pulmonary artery systolic pressure varies between 40 to 50 mmHg. Abnormal relaxation pattern was noted across the mitral valve annulus, left ventricular end diastolic pressure might be elevated. IMPRESSION: 1. Moderate global left ventricular systolic dysfunction. There are some features of left ventricular diastolic dysfunction, grade 2. 2. Mild mitral regurgitation. 3. Mild tricuspid regurgitation with probably moderate pulmonary hypertension. 4. Trace to small pericardial effusion, no evidence of cardiac tamponade. PROGNOSIS: Favorable ACTIVITY: As tolerated. DIET: Cardiac DISCHARGE PLAN: Transfer to another hospital for cardiac cauterization DISPOSITION: See above DISCHARGE INSTRUCTIONS: Follow-up with streaming media specialist in the outpatient settings ITEMS TO FOLLOWUP ON ON OUTPATIENT: Cardiac diet DISCHARGE CONDITION: Stable TIME SPENT ON DISCHARGE: Greater than 20 minutes. Vital Signs/I&Os Vital Signs Date Time Temp Pulse Resp B/P (MAP) Pulse Ox O2 Delivery O2 Flow Rate FiO2 07/05/19 12:00 98.9 99 18 118/70 (86) 97 07/01/19 17:15 Room Air I&O- Last 24 Hours up to 6 AM 07/05/19 05:59 Intake Total 1470 ml Output Total 1900 ml Balance -430 ml Laboratory Data Labs 24H Laboratory Tests 2 07/04/19 17:28: Bedside Glucose (Misc Panel) 155H 07/04/19 20:01: Bedside Glucose (Misc Panel) 229H 07/05/19 05:42: Nucleated Red Blood Cells % (auto) 0.0, Anion Gap 6L, Glomerular Filtration Rate 34.8L, Blood Urea Nitrogen 39H, Creatinine 1.64H, Sodium Level 137, Potassium Level 5.1, Chloride Level 105, Carbon Dioxide Level 26, Calcium Level 9.6, Magnesium Level 1.8 CBC/BMP Laboratory Tests 07/05/19 05:42 Red Blood Count 4.35, Mean Corpuscular Volume 87.8, Mean Corpuscular Hemoglobin 27.4, Mean Corpuscular Hemoglobin Concent 31.2 L, Red Cell Distribution Width 13.5, Calcium Level 9.6 FSBS Laboratory Tests Test 07/04/19 17:28 07/04/19 20:01 Range/Units Bedside Glucose (Misc Panel) 155 229 70-105 MG/DL Discharge Medications Scheduled Allopurinol (Allopurinol) 100 Mg Tab, 300 MG PO DAILY, (Reported) Aspirin (Aspirin EC) 81 Mg Tablet.dr, 81 MG PO DAILY Atorvastatin Calcium (Atorvastatin Calcium) 20 Mg Tablet, 20 MG PO DAILY Cannabidiol (Cbd Oil) Btl, 1,500 MG TOP DAILY, (Reported) USES ONE DROPPER DAILY FOR ARTHRITIS, TENDINITIS AND SLIPPED DISCS Cetirizine HCl (Cetirizine HCl) 10 Mg Tablet, 10 MG PO QHS, (Reported) Chlorthalidone (Chlorthalidone) 25 Mg Tab, 25 MG PO DAILY, (Reported) Estrogen,Con/M-Progest Acet (Prempro 0.625-5 mg Tablet) 1 Each Tablet, 0.5 TAB PO DAILY, (Reported) Fluticasone Propionate (Flovent Hfa) 220 Mcg/Act Aer.w.adap, 2 PUFF INH BID, (Reported) Fluticasone Propionate (Fluticasone Propionate) 16 Gm [place].susp, 2 SPRAY NARES BID, (Reported) Fluticasone/Vilanterol (Breo Ellipta 200-25 Mcg INH) 1 Each Blst.w.dev, 1 PUFF INH DAILY, (Reported) Glyburide (Glyburide) 5 Mg Tab, 5 MG PO DAILY, (Reported) Ipratropium [place] (Ipratropium [place]) 30 Ml [place], 1 SPRAY NARES BID, (Reported) Lansoprazole (Lansoprazole) 30 Mg Cap, 30 MG PO DAILY, (Reported) Lisinopril (Lisinopril) 5 Mg Tab, 5 MG PO DAILY, (Reported) Magnesium Oxide (Magnesium Oxide) 500 Mg Cap, 500 MG PO DAILY, (Reported) Magnesium Oxide (Magnesium Oxide) 500 Mg Capsule, 1,000 MG PO QPM, (Reported) Magnesium Oxide (Magnesium Oxide) 400 Mg Tablet, 400 MG PO TID Metformin HCl (Metformin HCl) 1,000 Mg Tab, 1,000 MG PO BID, (Reported) Metoprolol Succinate (Metoprolol Succinate) 50 Mg Tab.er.24h, 50 MG PO DAILY Multivit-Min/Iron/Folic/Lutein (Centrum Silver Women Tablet) 1 Each Tablet, 1 EACH PO DAILY, (Reported) Spironolactone (Spironolactone) 25 Mg Tab, 25 MG PO QHS, (Reported) Triamcinolone Acet (Triamcinolone Acetonide 0.1% Oint) 15 Gm Oint...g., 1 APLCT TOP BID, (Reported) APPLY TO UNDERARMS FOR ECZEMA Scheduled PRN Albuterol Sulf (Albuterol Sulfate) 2.5 Mg/3 Ml Vial.neb, 1 VIAL NEB Q4HP PRN for wheezing, (Reported) Albuterol Sulfate (Proair Hfa) 108 Mcg/Act Aer, 1 PUFF INH Q4H PRN for SOB/WHEEZING, (Reported) Cyclobenzaprine HCl (Cyclobenzaprine HCl) 10 Mg Tab, 10 MG PO TID PRN for MUSCLE SPASMS, (Reported) Allergies Coded Allergies: Sulfa (Sulfonamide Antibiotics) (Verified Allergy, Unknown, 07/01/19) DINORAH MARIN DO Jul 05, 2019 15:31
--- NOTE | 2019-07-06 04:27 | IPN ---
DATE: 07/04/2019 HISTORY OF PRESENT ILLNESS: A 53-year-old woman was initially admitted on 07/01/2019 and was diagnosed with congestive heart failure and her echocardiogram revealed a left ventricular ejection fraction (LVEF) estimated at 30%. Initial serum troponin was 0.11, then slowly came down, and the most recent one on 07/02/2019 was 0.06. Her ProBNP on admission was 3280. She was given intravenous (IV) fluids and responded very well. She has been having shortness of breath with activities and chest discomfort prior to coming to the hospital. She has a history of hypertension, diabetes mellitus, and her lipid profile revealed an elevated serum cholesterol. Mrs. Clark denies any chest pain or palpitations or pedal edema. She has been ambulating, and she stated, not mentioned above, her shortness of breath has improved significantly. There is no report of bleeding. There is no focal manifestation. She does have a hoarseness, and she was evaluated by ear, nose, and throat (ENT) and had imaging studies done and there was no lesion found. As outpatient, the plan is to proceed with a laryngoscope. PHYSICAL EXAMINATION: Patient is alert and oriented, in no acute distress at rest, and her vital signs today reveal a blood pressure of 123/78 with a pulse that varied between 96 and 110. Respirations 18 and her maximum temperature is 97.4 degrees Fahrenheit with an oxygen saturation of 97-100% on room air. She had a negative fluid balance of 500 mL for 07/03/2019. Examination of the head: Atraumatic. Neck is supple and no jugular venous distention (JVD) appreciated. The lungs did not reveal any wheezing or crackles. The heart examination revealed a regular heart sound without gallops. The point of maximal impulse (PMI) is slightly displaced inferiorly and laterally. There is no rub. There is a systolic murmur grade 1/6 at the lower left sternal border and at the apex without any significant radiation. Abdomen is unremarkable. Extremities revealed no pedal edema. Neurological examination is negative for focal deficit. LABS: CBC revealed a WBC of 7.8, hemoglobin 11.0, hematocrit 34.3, and platelet 337,000. BMP revealed a sodium of 135, potassium 4.3, chloride 103, CO2 of 25, BUN 38, creatinine 1.55, GFR 37, fasting glucose 202, and calcium 9.7 with serum magnesium of 1.5. IMPRESSION: 1. Heart failure, systolic in nature and currently compensated on current medications. Patient with no prior history. Prior to coming to the hospital, she was symptomatic with shortness of breath and chest discomfort. The immediate plan is to proceed with a cardiac catheterization to assess her coronary anatomy and have a treatment plan. In the meantime, we will continue current medications. Her furosemide was stopped yesterday in the decision of the cardiac catheterization, and we will stop holding the lisinopril. Her metformin was discontinued on admission. She probably will be loaded with Plavix once her transfer is confirmed. 2. Hypertension, under control with current medications and she will continue same. 3. Hyperlipidemia. Started now on generic Lipitor. 4. Diabetes mellitus. This is being addressed. 5. Chronic kidney disease, stage II and stable.
== END 2019-07-05 14:19 | disposition short-term general hospital (02) | DRG 291 ==
LOC: M ED 16:14 → M ED INP 20:21 → M PCU 21:33 → OBSVTOIN 07-03 16:56 → INTOOBSV 07-03 16:56
PROVIDERS: ADMIT Internal Medicine; ATTEND Internal Medicine
DX: I13.0 Hypertensive heart and chronic kidney disease with heart failure and stage 1 through stage 4 chronic kidney disease, or unspecified chronic kidney disease (principal); I50.21 Acute systolic (congestive) heart failure; I48.92 Unspecified atrial flutter; N18.3 Chronic kidney disease, stage 3 (moderate); E11.9 Type 2 diabetes mellitus without complications; E78.5 Hyperlipidemia, unspecified; J38.3 Other diseases of vocal cords; R49.0 Dysphonia; I08.1 Rheumatic disorders of both mitral and tricuspid valves; I27.20 Pulmonary hypertension, unspecified; Z79.82 Long term (current) use of aspirin; Z79.899 Other long term (current) drug therapy; Z88.2 Allergy status to sulfonamides; R07.9 Chest pain, unspecified; K21.9 Gastro-esophageal reflux disease without esophagitis; M10.9 Gout, unspecified; E66.9 Obesity, unspecified; Z86.73 Personal history of transient ischemic attack (TIA), and cerebral infarction without residual deficits; I48.91 Unspecified atrial fibrillation; I42.9 Cardiomyopathy, unspecified

== ENCOUNTER → 2019-07-01 | Outpatient (REF) | payer OTHER ==
[~2019-07-01] MED LIST changes: -ATOR40TA75 PO; -CINN500C2 PO; -IPRA3SP; -LISI10TA4 PO; -MAGN400T2 PO; -METO50TA7 PO; -TORS20TA2 PO; -TRES100I SC; -TRUL10IN SC; -ZYLO300T6 PO
[2019-07-01 16:05] LABS: CREATININE FOR GFR 1.4 MG/DL (0.55-1.30); GLOMERULAR FILTRATION RATE 41.7 (>51)
== END ==
LOC: M LAB REF 13:07
PROVIDERS: ATTEND Internal Medicine Pulmonary Disease
DX: J45.40 Moderate persistent asthma, uncomplicated (principal); R06.00 Dyspnea, unspecified

== ENCOUNTER → 2019-10-22 | Outpatient (RCR) | payer OTHER ==
--- NOTE | 2019-10-01 14:39 | CARECAPL ---
Assessment Account #s: Initial Assessment General Diagnoses: CHF (CARDIOMYOPATHY - EF 30% PER PATIENT) Date of event: Jul 06, 2019 Physician: CARLYN PALM MD Allergies: Coded Allergies: Sulfa (Sulfonamide Antibiotics) (Verified Allergy, Unknown, 07/01/19) Date Entered Program: Oct 01, 2019 Risk strat for cardiac event: High Exercise Date: Oct 01, 2019 Assessment: Initial Assessment Stages of change: Preperation Exercise Prescription Plan TO EDUCATE AND BUILD ENDURANCE THROUGH MONITORED EXERCISE Modalities initiated: Treadmill (WILL ADD), Nustep (WILL ADD), Arm Aerometer (WILL ADD), Dumbells (WILL ADD), Recumbent Bike (WILL ADD) Frequency: 3 Duration (Minutes) 30 - 60 minutes total exercise a day. 15 - 20 work intervals in minutes. PRN rest intervals in minutes. Functional Capacity Goal Sustained Metabolic Equivalent of a task (MET) goal of 2.0-2.75 for 15-20 minutes. Intensity: 3-Moderate Progression (METS) Increase by: 0.5 METS every: 3-5 sessions TOLERATED Angina with ex: No Target Heart Rate REST +35-40 BASED ON BETA JACKELIN THERAPY Resistance Training: Yes Weight (pounds): 1 Reps: 8-12 Hypertension: Yes Hypertension controlled with: Medication (LISINOPRIL, METOPROLOL) Resting 153/83 Medications Scheduled Allopurinol (Zyloprim), 300 MG PO DAILY, (Reported) Aspirin (Aspirin EC), 81 MG PO DAILY Atorvastatin Calcium (Atorvastatin Calcium), 40 MG PO QPM, (Reported) Cetirizine HCl (Cetirizine HCl), 10 MG PO QHS, (Reported) Cinnamon Bark (Cinnamon), 1,000 MG PO DAILY, (Reported) Dulaglutide (Trulicity), 0.75 MG SC Q7D, (Reported) Estrogen,Con/M-Progest Acet (Prempro 0.625-5 mg Tablet), 1 TAB PO Q2D, (Reported) Fluticasone Propionate (Flovent Hfa), 2 PUFF INH BID, (Reported) Fluticasone Propionate (Fluticasone Propionate), 2 SPRAY NARES BID, (Reported) Glyburide (Glyburide), 5 MG PO BID, (Reported) Insulin Degludec (Tresiba), 100 UNIT SC DAILY, (Reported) Lansoprazole (Lansoprazole), 30 MG PO DAILY, (Reported) Lisinopril (Lisinopril), 10 MG PO DAILY, (Reported) Magnesium Oxide (Magnesium Oxide), 1,000 MG PO BID, (Reported) Magnesium Oxide (Magnesium Oxide), 400 MG PO BID, (Reported) Metoprolol Tartrate (Metoprolol Tartrate), 50 MG PO BID, (Reported) Multivit-Min/Iron/Folic/Lutein (Centrum Silver Women Tablet), 1 EACH PO DAILY, (Reported) Spironolactone (Spironolactone), 25 MG PO QHS, (Reported) Torsemide (Torsemide), 20 MG PO Q2D, (Reported) Triamcinolone Acet (Triamcinolone Acetonide 0.1% Oint), 1 APLCT TOP BID, (Reported) Scheduled PRN Albuterol Sulf (Albuterol Sulfate), 1 VIAL NEB Q4HP PRN for wheezing, (Reported) Albuterol Sulfate (Proair Hfa), 1 PUFF INH Q4H PRN for SOB/WHEEZING, (Reported) Cyclobenzaprine HCl (Cyclobenzaprine HCl), 10 MG PO TID PRN for MUSCLE SPASMS, (Reported) Ipratropium [place] (Ipratropium [place]), 1 SPRAY NA BIDP PRN for DYSPNEA, (Reported) Discontinued Medications Allopurinol (Allopurinol), 300 MG PO DAILY, (Reported) Discontinued Reason: Pt states not taking Atorvastatin Calcium (Atorvastatin Calcium), 20 MG PO DAILY Discontinued Reason: Pt states not taking Cannabidiol (Cbd Oil), 1,500 MG TOP DAILY, (Reported) Discontinued Reason: Pt states not taking Chlorthalidone (Chlorthalidone), 25 MG PO DAILY, (Reported) Discontinued Reason: Pt states not taking Estrogen,Con/M-Progest Acet (Prempro 0.625-5 mg Tablet), 0.5 TAB PO DAILY, (Reported) Discontinued Reason: Pt states not taking Fluticasone/Vilanterol (Breo Ellipta 200-25 Mcg INH), 1 PUFF INH DAILY, (Reported) Discontinued Reason: Pt states not taking Ipratropium [place] (Ipratropium [place]), 1 SPRAY NARES BID, (Reported) Discontinued Reason: Pt states not taking Lisinopril (Lisinopril), 5 MG PO DAILY, (Reported) Discontinued Reason: Pt states not taking Magnesium Oxide (Magnesium Oxide), 500 MG PO DAILY, (Reported) Discontinued Reason: Pt states not taking Magnesium Oxide (Magnesium Oxide), 400 MG PO TID Discontinued Reason: Pt states not taking Metformin HCl (Metformin HCl), 1,000 MG PO BID, (Reported) Discontinued Reason: Pt states not taking Metoprolol Succinate (Metoprolol Succinate), 50 MG PO DAILY Discontinued Reason: Pt states not taking Med Change: No Intervention Resistance Training: Yes Education: Self pulse (Patient independently demonstrates taking own pulse), S/S to report (Patient verbalizes understanding of importance of reporting chest pain,sob,nausea during exercise), Low NA diet (Patient verbalizes understanding that she is not to add salt to food, and to follow a low salt diet), RPE Scale (Reviewed our RPE scale for rating each piece of equipment after using), warm up/cool down Education Goals Met: No Target Goals Individual exercise Rx (1) BP 140/90 or 130/80 if DM or CKD (1) Aerobic active 30+min 5 days per week (1) Nutrition Date: Oct 01, 2019 Assessment: Initial Assessment Stages of change: Preperation Lipid- med/supplement ATORVASTATIN Med Change: No Diabetes Diabetes: Yes (CHECKS FSBS DAILY) Diabetes medication GLYBURIDE, INSULIN DEGLUDEC 100 UNITS DAILY Monitor Blood Sugar at home: Yes Frequency DAILY Medication Change: No Weight Management Weight (lbs): 148 Height (inches): 61 Waist Circumference (Inches): 38.5 BMI: 28 Special Diet: low salt, low-fat Vitamin/Supplements: Multivitamin Alcohol: none Diet Access Tool: Rate your plate Score: 64 Current Weight (pounds): 148 Referral to Diabetes education: No Referral to lipid clinic: No Referral to weight mangement p: No Education S&S hypo/hyper glycemia (Patient verbalizes understanding of signs and symptoms of hypoglycemia such as lethargy, increased sleep, thirst,nausea, hunger), Eating Healthy Education Goals Met: No Target goal LDL-C<100 if triglycerides are >200 Non-HDL-C should be <130 (1) LDL-C<70 for high risk patients (4) HbA1c<7% (1) BMI<25 Waist cir<40in M/<35in F (1) Education Date: Oct 01, 2019 Assessment: Initial Assessment Learning Barriers: ready Stages of change: Preperation Family Support: Yes Tobacco use: No Tobacco Use Smokeless tobacco: No Intervention Referral to smoking cessation: No Individual education and couns: No Tobacco Adjunct: No Education class schedule given: No Attended education classes: No Education: med compliance (Reviewed importance of medication compliance, patient verbalizes understanding) Education Goals Met: No Target Goals Complete cessation of tobacco use (1). Psychosocial Date: Oct 01, 2019 Assessment: Initial Assessment Psych Test (Initial/Discharge) Tool Used: Other (PHQ-9) Score: 1 Stages of change: Preperation Intervention Physician Consult: No Physician Referral: No Med Change: No Stress Management Class: No Uses Stress Management Skills: Yes Education Education: S/S depression (DISCUSSED DEPRESSION SCALE, S/S SUCH WITHDRAWAL,LOSS OF APPETITE) Education Goals Met: No Target Goal Assess presence or absence of depression using a valid screening tool (1). Maximize coping skills (2). Positive support system (2). Patient/Program Goal Preventative Medication: Yes Aspirin, Yes Beta blockade, Yes ADRIAN Inhibitor, Yes Statin/OTR lipid Lowering Fall Risk Assess: Yes (NOT A FALL RISK) Provider Assessment Session Number: 1 Provider Assessment: Proceed with rehab Mike Hyman RN Oct 01, 2019 14:39
[~2019-10-22] MED LIST changes: +ALBU83IN NEB; +ALL10TAB29 PO; +ASPI81TAEC PO; +ATOR1TAB21 PO; +ATOR40TA75 PO; +BREO1INH3 INH; +CBD OIL TOP; +CENT1TAB9 PO; +CINN500C2 PO; +FLUT22IN INH; +FLUTISP NARES; +IPRA3SP; +IPRA3SP NARES; +LISI10TA4 PO; +MAG400TA PO; +MAGN400T2 PO; +METO50TA7 PO; +PREM0.6254 PO; +TORS20TA2 PO; +TRES100I SC; +TRIA1OI TOP; +TRIA1OI80 TOP; +TRUL10IN SC; +ZYLO300T6 PO
== END ==
LOC: M CR 10-01 12:18
PROVIDERS: ATTEND Internal Medicine Cardiovascular Disease
DX: I42.9 Cardiomyopathy, unspecified (principal)

== ENCOUNTER 2019-11-15 09:57 | Outpatient (RCR) | payer OTHER ==
--- NOTE | 2019-10-25 17:41 | CARECAPL ---
Assessment Account #s: Re-Assessment I General Diagnoses: CHF (CARDIOMYOPATHY/EF 30 % PER PATIENT) Date of event: Jul 06, 2019 Physician: CARLYN PALM MD Allergies: Coded Allergies: Sulfa (Sulfonamide Antibiotics) (Verified Allergy, Unknown, 07/01/19) Date Entered Program: Oct 01, 2019 Risk strat for cardiac event: High Exercise Date: Oct 25, 2019 Assessment: Re-Assessment I Stages of change: Preperation Exercise Prescription Plan TO EDUCATE AND BUILD ENDURANCE THROUGH MONITORED EXERCISE PROGRAM Modalities initiated: Treadmill (METS=2.7/RPE=3.5), Nustep (METS=4.2/RPE=3), Arm Aerometer (METS=2.6/RPE=4) Frequency: 3 Duration (Minutes) 30 - 60 minutes total exercise a day. 15 - 20 work intervals in minutes. PRN rest intervals in minutes. Functional Capacity Goal Sustained Metabolic Equivalent of a task (MET) goal of 3.5-4.5 for 15-20 minutes. Intensity: 3-Moderate Progression (METS) Increase by: 0.5 METS every: 5 sessions TOLERATED Angina with ex: No Target Heart Rate REST + 35-40 BASED ON BETA JACKELIN THERAPY Resistance Training: Yes Weight (pounds): 3 Reps: 12-15 Hypertension: Yes Hypertension controlled with: Medication (LISINOPRIL AND METOPROLOL) Resting 118/80 Peak Exercise BP 136/90 Medications Scheduled Allopurinol (Zyloprim), 300 MG PO DAILY, (Reported) Aspirin (Aspirin EC), 81 MG PO DAILY Atorvastatin Calcium (Atorvastatin Calcium), 40 MG PO QPM, (Reported) Cetirizine HCl (Cetirizine HCl), 10 MG PO QHS, (Reported) Cinnamon Bark (Cinnamon), 1,000 MG PO DAILY, (Reported) Dulaglutide (Trulicity), 0.75 MG SC Q7D, (Reported) Estrogen,Con/M-Progest Acet (Prempro 0.625-5 mg Tablet), 1 TAB PO Q2D, (Reported) Fluticasone Propionate (Flovent Hfa), 2 PUFF INH BID, (Reported) Fluticasone Propionate (Fluticasone Propionate), 2 SPRAY NARES BID, (Reported) Glyburide (Glyburide), 5 MG PO BID, (Reported) Insulin Degludec (Tresiba), 100 UNIT SC DAILY, (Reported) Lansoprazole (Lansoprazole), 30 MG PO DAILY, (Reported) Lisinopril (Lisinopril), 10 MG PO DAILY, (Reported) Magnesium Oxide (Magnesium Oxide), 1,000 MG PO BID, (Reported) Magnesium Oxide (Magnesium Oxide), 400 MG PO BID, (Reported) Metoprolol Tartrate (Metoprolol Tartrate), 50 MG PO BID, (Reported) Multivit-Min/Iron/Folic/Lutein (Centrum Silver Women Tablet), 1 EACH PO DAILY, (Reported) Spironolactone (Spironolactone), 25 MG PO QHS, (Reported) Torsemide (Torsemide), 20 MG PO Q2D, (Reported) Triamcinolone Acet (Triamcinolone Acetonide 0.1% Oint), 1 APLCT TOP BID, (Reported) Scheduled PRN Albuterol Sulf (Albuterol Sulfate), 1 VIAL NEB Q4HP PRN for wheezing, (Reported) Albuterol Sulfate (Proair Hfa), 1 PUFF INH Q4H PRN for SOB/WHEEZING, (Reported) Cyclobenzaprine HCl (Cyclobenzaprine HCl), 10 MG PO TID PRN for MUSCLE SPASMS, ( Reported) Ipratropium [place] (Ipratropium [place]), 1 SPRAY NA BIDP PRN for DYSPNEA, (Reported) Current BP 116/80 Med Change: No Intervention Resistance Training: Yes Education: BP medication (REVIEWED ACTION OF LISINOPRIL AND METOPROLOL, PATIENT VERBALIZES UNDERSTANDING), Equipment orientation (ORIENTED TO EACH PIECE OF EQUIPMENT USED), Understand BP (REVIEWED WITH PATIENT THAT IDEAL B/P SHOULD BE <120/80, PATIENT VERBALLIZES UNDERSTANDING), Physical Active (PATIENT VERBALIZES IMPORTANCE OF CONTINUED EXERCISE FOLLOWING CARDIAC REHAB PROGRAM) Education Goals Met: Yes (PROGRESSING TOWARD GOALS) Target Goals Individual exercise Rx (1) BP 140/90 or 130/80 if DM or CKD (1) Aerobic active 30+min 5 days per week (1) Nutrition Date: Oct 25, 2019 Assessment: Re-Assessment I Stages of change: Preperation Lipid- med/supplement ATORVASTATIN Med Change: No Diabetes Diabetes: Yes Fasting Blood Sugar: 326 Diabetes medication GLYBURIDE,INSULIN DEGLUDEC 100 UNITS DAILY Monitor Blood Sugar at home: Yes Frequency FSBS DAILY Medication Change: No Blood sugar in range: No (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 Nurse/patient discussion: Yes Dietary Goals HEART HEALTHY DIET SELECTIONS, SMALLER PORTIONS Diet Class: Yes (WILL SEE SMUDGER WHILE IN PROGRAM) Referral to Diabetes education: No Referral to lipid clinic: No Referral to weight mangement p: No Education Eating Healthy Education Goals Met: Yes (PROGRESSING TOWARD GOALS) Target goal LDL-C<100 if triglycerides are >200 Non-HDL-C should be <130 (1) LDL-C<70 for high risk patients (4) HbA1c<7% (1) BMI<25 Waist cir<40in M/<35in F (1) Education Date: Oct 25, 2019 Assessment: Re-Assessment I Learning Barriers: ready Stages of change: Preperation Family Support: Yes Tobacco use: No Tobacco Use Smokeless tobacco: No Intervention Referral to smoking cessation: No Individual education and couns: No Tobacco Adjunct: No Education class schedule given: No Attended education classes: No Education: med compliance (PATIENT VERBALIZES UNDERSTANDING OF IMPORTANCE OF MEDICATION COMPLIANCE), Angina S/S (PATIENT VERBALIZES UNDERSTANDING OF S/S OF ANGINA, SUCH CHEST PAIN OR PRESSURE, SOB) Education Goals Met: Yes (PROGRESSING TOWARD GOALS) Target Goals Complete cessation of tobacco use (1). Psychosocial Date: Oct 25, 2019 Assessment: Re-Assessment I Stages of change: Preperation Intervention Physician Consult: No Physician Referral: No Med Change: No Stress Management Class: No Uses Stress Management Skills: Yes Education Education: Relaxation Techniques (DISCUSSED RELAXATION TECHNIQUES SUCH READING, LISTENING TO MUSIC, EXERCISE) Education Goals Met: Yes (PROGRESSING TOWARD GOALS) Target Goal Assess presence or absence of depression using a valid screening tool (1). Maximize coping skills (2). Positive support system (2). Patient/Program Goal Preventative Medication: Yes Aspirin, Yes Beta blockade, Yes ADRIAN Inhibitor, Yes Statin/OTR lipid Lowering Fall Risk Assess: Yes (NOT A FALL RISK) Provider Assessment Session Number: 4 Provider Assessment: Proceed with rehab Mike Hyman RN Oct 25, 2019 17:41
[2019-11-04 09:48] VITALS: BP 128/84
[2019-11-04 10:52] VITALS: BP 146/86
[2019-11-04 11:14] VITALS: BP 128/86
[~2019-11-15] VITALS: Ht 154.9 cm; Wt 67.0 kg
[2019-11-15 10:23] VITALS: BP 108/64
[2019-11-15 10:24] VITALS: BP 162/90
[2019-11-15 10:25] VITALS: BP 110/80
--- NOTE | 2019-11-15 17:58 | CARECAPL ---
Assessment Account #s: Re-Assessment II General Diagnoses: CHF Date of event: Jul 06, 2019 Physician: CARLYN PALM MD Allergies: Coded Allergies: Sulfa (Sulfonamide Antibiotics) (Verified Allergy, Unknown, 07/01/19) Date Entered Program: Oct 01, 2019 Risk strat for cardiac event: High Exercise Date: Nov 15, 2019 Assessment: Re-Assessment II Stages of change: Preperation Exercise Prescription Plan TO EDUCATE AND BUILD ENDURANCE THROUGH MONITORED EXERCISE PROGRAM Modalities initiated: Treadmill (METS=3.62/RPE=2.5), Nustep (METS=4.3/RPE=2), Arm Aerometer (METS=2.4/RPE=2), Dumbells (4#/RPE=3), Recumbent Bike (METS=6.4/RPE=3) Frequency: 3 Duration (Minutes) 30 - 60 minutes total exercise a day. 15 - 20 work intervals in minutes. PRN rest intervals in minutes. Functional Capacity Goal Sustained Metabolic Equivalent of a task (MET) goal of 4.25-5.25 for 15-20 minutes. Intensity: 3-Moderate Progression (METS) Increase by: 0.5 METS every: 5 sessions TOLERATED Angina with ex: No Target Heart Rate REST + 35-40 PER BETA JACKELIN THERAPY Resistance Training: Yes Weight (pounds): 4 Reps: 12-15 Hypertension: Yes Hypertension controlled with: Medication (LISINOPRIL, METOPROLOL) Resting 108/64 Peak Exercise BP 162/90 Medications Scheduled Allopurinol (Zyloprim), 300 MG PO DAILY, (Reported) Aspirin (Aspirin EC), 81 MG PO DAILY Atorvastatin Calcium (Atorvastatin Calcium), 40 MG PO QPM, (Reported) Cetirizine HCl (Cetirizine HCl), 10 MG PO QHS, (Reported) Cinnamon Bark (Cinnamon), 1,000 MG PO DAILY, (Reported) Dulaglutide (Trulicity), 0.75 MG SC Q7D, (Reported) Estrogen,Con/M-Progest Acet (Prempro 0.625-5 mg Tablet), 1 TAB PO Q2D, (Reported) Fluticasone Propionate (Flovent Hfa), 2 PUFF INH BID, (Reported) Fluticasone Propionate (Fluticasone Propionate), 2 SPRAY NARES BID, (Reported) Glyburide (Glyburide), 5 MG PO BID, (Reported) Insulin Degludec (Tresiba), 100 UNIT SC DAILY, (Reported) Lansoprazole (Lansoprazole), 30 MG PO DAILY, (Reported) Lisinopril (Lisinopril), 10 MG PO DAILY, (Reported) Magnesium Oxide (Magnesium Oxide), 1,000 MG PO BID, (Reported) Magnesium Oxide (Magnesium Oxide), 400 MG PO BID, (Reported) Metoprolol Tartrate (Metoprolol Tartrate), 50 MG PO BID, (Reported) Multivit-Min/Iron/Folic/Lutein (Centrum Silver Women Tablet), 1 EACH PO DAILY, (Reported) Spironolactone (Spironolactone), 25 MG PO QHS, (Reported) Torsemide (Torsemide), 20 MG PO Q2D, (Reported) Triamcinolone Acet (Triamcinolone Acetonide 0.1% Oint), 1 APLCT TOP BID, (Reported) Scheduled PRN Albuterol Sulf (Albuterol Sulfate), 1 VIAL NEB Q4HP PRN for wheezing, (Reported) Albuterol Sulfate (Proair Hfa), 1 PUFF INH Q4H PRN for SOB/WHEEZING, (Reported) Cyclobenzaprine HCl (Cyclobenzaprine HCl), 10 MG PO TID PRN for MUSCLE SPASMS, (Reported) Ipratropium [place] (Ipratropium [place]), 1 SPRAY NA BIDP PRN for DYSPNEA, (Reported) Current BP 110/80 Med Change: No Intervention Home exercise: Type (WALKING, WEIGHTS, JOIN LOCAL GYM), Frequency (3-5 DAYS PER WEEK), Duration (30-60 MINUTES) Resistance Training: Yes Education: Self pulse (PATIENT DEMONSTRATES TAKING SELF PULSE), Ex safety (PATIENT VERBALIZES UNDERSTANDING OF SAFE EXERCISE SUCH WARM UP/COOL DOWN, STAYING HYDRATED), S/S to report (PATIENT VERBALIZES UNDERSTANDING OF REPORTING CHEST PAIN, OR PRESSURE, SOB, N/V), Low NA diet (PATIENT STATES IMPORTANCE FOR HER TO AVOID SALT IN HER DIET) Education Goals Met: No (PROGRESSING TOWARD GOALS) Target Goals Individual exercise Rx (1) BP 140/90 or 130/80 if DM or CKD (1) Aerobic active 30+min 5 days per week (1) Nutrition Date: Nov 15, 2019 Assessment: Re-Assessment II Stages of change: Preperation Lipid- med/supplement ATORVASTATIN Med Change: No Diabetes Diabetes: Yes Fasting Blood Sugar: 216 Diabetes medication GLYBURIDE, INSULIN DEGLUDEC 100 UNITS DAILY Monitor Blood Sugar at home: Yes Frequency FSBS DAILY Medication Change: No Blood sugar in range: No (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) Referral to Diabetes education: No Referral to lipid clinic: No Referral to weight mangement p: No Education Eating Healthy Education Goals Met: No (PROGRESSING TOWARD GOALS) Target goal LDL-C<100 if triglycerides are >200 Non-HDL-C should be <130 (1) LDL-C<70 for high risk patients (4) HbA1c<7% (1) BMI<25 Waist cir<40in M/<35in F (1) Education Date: Nov 15, 2019 Assessment: Re-Assessment II Learning Barriers: ready Stages of change: Preperation Family Support: Yes Tobacco use: No Tobacco Use Smokeless tobacco: No Intervention Referral to smoking cessation: No Individual education and couns: No Tobacco Adjunct: No Education class schedule given: No Attended education classes: No Education: CAD (PATIENT VERBALIZES UNDERSTANDING THAT ELEVATED CHOLESTEROL CAUSES CAD), Risk factors (PATIENT STATES THAT ELEVATED CHOLESTEROL, DIABETES, AND BEING OVER WEIGHT ARE RISK FACTORS FOR CAD), cardiac A&P (REVIEWED HANDOUTS SHOWING CARDIAC ANATOMY AND PHISIOLOGY), Sexuality (PATIENT STATES NO SEXUAL ACTIVITY UNTIL APPROVED BY MD) Education Goals Met: No (PROGRESSING TOWARD GOALS) Target Goals Complete cessation of tobacco use (1). Psychosocial Date: Nov 15, 2019 Assessment: Re-Assessment II Stages of change: Preperation Intervention Physician Consult: No Physician Referral: No Med Change: No Stress Management Class: No Uses Stress Management Skills: Yes Education Education: Coping Techniques (DISCUSSED COPING MECHANISMS SUCH TALKING WITH FAMILY OR FRIENDS, TAKING TIME FOR SELF), S/S depression (REVIEWED S/S OF DEPRESSION SUCH WITHDRAWAL, LACK OF INTEREST, LACK OF APPETITE) Target Goal Assess presence or absence of depression using a valid screening tool (1). Maximize coping skills (2). Positive support system (2). Patient/Program Goal Preventative Medication: Yes Aspirin, Yes Beta blockade, Yes ADRIAN Inhibitor, Yes Statin/OTR lipid Lowering Fall Risk Assess: Yes (NOT A FALL RISK) Provider Assessment Session Number: 8 Provider Assessment: Proceed with rehab Mike Hyman RN Nov 15, 2019 17:58
== END 2019-11-20 ==
LOC: M CR 09:57
PROVIDERS: ATTEND Internal Medicine Cardiovascular Disease
DX: I42.9 Cardiomyopathy, unspecified (principal); Z51.89 Encounter for other specified aftercare

== ENCOUNTER → 2020-05-09 | Outpatient (REF) | payer OTHER ==
[~2020-05-09] MED LIST changes: -ALL10TAB29 PO; +CETI-24 PO; +CYCL-707 PO; -CYCL10TA PO
[2020-07-19 04:25] LABS: ALBUMIN 4.1 GM/DL (3.2-5.2); BILIRUBIN,DIRECT 0.1 MG/DL (0.0-0.2); BILIRUBIN,TOTAL 0.5 MG/DL (0.2-1.0); CHOLESTEROL RISK RATIO 3.697 (<5); FREE T4 0.85 NG/DL (0.76-1.46); PERCENT SATURATION 16.9 % (13.2-45.0); THYROID STIMULATING HORMONE 2.59 uIU/ML (0.358-3.740); TOTAL PROTEIN 7.5 GM/DL (6.4-8.2); TOTAL T3 124.5 NG/DL (60.0-181.0)
== END ==
LOC: M LAB REF 13:03
PROVIDERS: ATTEND Nurse Practitioner Family
DX: D50.9 Iron deficiency anemia, unspecified (principal); E78.2 Mixed hyperlipidemia; N18.3 Chronic kidney disease, stage 3 (moderate); R53.83 Other fatigue

== ENCOUNTER → 2020-08-09 | Outpatient (REF) | payer OTHER ==
[2020-08-09 18:06] LABS: TOTAL PROTEIN 7.8 GM/DL (6.4-8.2)
[2020-08-09 18:30] LABS: FERRITIN 35 NG/ML (8-252); IRON (FE) 67 UG/DL (50-170); PERCENT SATURATION 14.6 % (13.2-45.0); TOTAL IRON BINDING CAPACITY 458 UG/DL (250-450)
[2020-08-09 18:52] LABS: HEPATITIS B SURFACE ANTIBODY NEGATIVE (POSITIVE)
[2020-08-09 19:03] LABS: HEPATITIS B SURFACE ANTIGEN NEGATIVE (NEGATIVE)
[2020-08-09 19:31] LABS: HEPATITIS B CORE ANTIBODY IGM NEGATIVE (NEGATIVE); HEPATITIS C VIRUS ABY INDEX < 0.0 INDEX (<0.8)
[2020-08-09 19:32] LABS: HIV 1&2 SCREEN CENTAUR NEGATIVE (NEGATIVE)
[2020-08-10 15:44] LABS: ALBUMIN 4.59 GM/DL (3.29-5.55); ALBUMIN % 58.8 % (55.8-66.1); ALPHA-1-GLOBULIN % 4.8 % (2.9-4.9); ALPHA-1-GLOBULINS 0.37 GM/DL (0.17-0.41); ALPHA-2-GLOBULINS 0.77 GM/DL (0.42-0.99); ALPHA-2-GLOBULINS % 9.9 % (7.1-11.8); BETA-1-GLOBULINS 0.55 GM/DL (0.28-0.60); BETA-1-GLOBULINS % 7.1 % (4.7-7.2); BETA-2-GLOBULINS 0.44 GM/DL (0.19-0.55); BETA-2-GLOBULINS % 5.6 % (3.2-6.5); GAMMA GLOBULIN % 13.8 % (11.1-18.8); GAMMA GLOBULINS 1.08 GM/DL (0.65-1.58)
[2020-08-11 18:09] LABS: KAPPA/LAMBDA RATIO SERUM 1.07 (0.26-1.65)
== END ==
LOC: M LAB REF 16:48
PROVIDERS: ATTEND Nurse Practitioner Family
DX: N18.32 Chronic kidney disease, stage 3b (principal); I50.22 Chronic systolic (congestive) heart failure; D50.9 Iron deficiency anemia, unspecified

== ENCOUNTER 2021-02-13 12:21 | Emergency (ER) | payer OTHER ==
[~2021-02-13] VITALS: Ht 154.9 cm; Wt 69.5 kg
[~2021-02-13 12:21] MED LIST changes: +ASPI-569 PO; -ASPI81TAEC PO; +GLYB2.5T7 PO; -GLYB25TA PO; -GLYB5TA PO; +GLYB5TAB6 PO; -LISI-542 PO; +LISI-898 PO; +LISI10TA22 PO; -LISI10TA4 PO; -MAG400TA PO; +MAGN400T35 PO
[2021-02-13] MEDS ORDERED: SERT50TA29 PO (13:53)
[2021-02-13] MEDS ORDERED: DOXY100C PO (13:53)
[2021-02-13] MEDS ORDERED: LOPR1TAB7 PO (13:53)
[2021-02-13] MEDS ORDERED: TRES100I SC (13:53)
[2021-02-13] MEDS ORDERED: GLYB5TAB6 PO (13:53)
[2021-02-13] MEDS ORDERED: ENTR1TAB7 PO (13:53)
[2021-02-13] MEDS ORDERED: METH2.5T48 PO (13:53)
[2021-02-13] MEDS ORDERED: HYDR-3363 PO (13:53)
[2021-02-13] MEDS ORDERED: HUMA100I5 SQ (13:53)
[2021-02-13] MEDS ORDERED: FOLI1TAB11 PO (13:53)
--- NOTE | 2021-02-13 15:20 | REP ---
INDICATION: low back pain, right radiculoapthy r/o kidney stone COMPARISON: None TECHNIQUE: Axial noncontrast images from the lung bases to the pubic symphysis with coronal and sagittal reformations. This CT examination was performed using the following dose reduction techniques: Automated exposure control, adjustment of mA and/or kv according to the patient's size, and use of iterative reconstruction technique. FINDINGS: Lung bases are clear. Visualized heart and pericardium normal. Single lead pacemaker noted. Liver, spleen, pancreas, gallbladder, bilateral adrenal glands and kidneys are normal. The enteric system is unremarkable and without obstruction or acute inflammatory process. Normal terminal ileum and cecum identified in the right lower quadrant. Pelvis demonstrates normal bladder and age-appropriate uterus/adnexa. No ascites. No free air. No adenopathy. No focal inflammatory stranding. Abdominal aorta without aneurysm. Musculoskeletal structures demonstrate degenerative changes to the lower lumbar spine including endplate sclerosis, osteophytosis and disc space narrowing at L4-5 and to a lesser extent L3-4 and L5-S1.. IMPRESSION: No acute abdominopelvic pathology appreciated. <Electronically signed by Sanjay Forrester > 02/13/21 [id number]
[2021-02-13] MEDS ORDERED: ULTR50TA8 PO (15:46)
[2021-02-13 15:53] VITALS: BP 137/72
== END 2021-02-13 15:56 | disposition home or self-care (01) ==
LOC: M ED 12:21
DX: M51.36 Other intervertebral disc degeneration, lumbar region (principal); M51.37 Other intervertebral disc degeneration, lumbosacral region; I10 Essential (primary) hypertension; J45.909 Unspecified asthma, uncomplicated; J44.9 Chronic obstructive pulmonary disease, unspecified; E11.9 Type 2 diabetes mellitus without complications; Z79.4 Long term (current) use of insulin; Z79.82 Long term (current) use of aspirin; Z79.899 Other long term (current) drug therapy; Z91.041 Radiographic dye allergy status; Z88.2 Allergy status to sulfonamides; Z88.1 Allergy status to other antibiotic agents; Z88.4 Allergy status to anesthetic agent

== ENCOUNTER → 2021-02-21 | Outpatient (REF) | payer OTHER ==
[~2021-02-21] MED LIST changes: +DOXY100C PO; +ENTR1TAB7 PO; +FOLI1TAB11 PO; +HUMA100I5 SQ; +HYDR-3363 PO; +LOPR1TAB7 PO; +METH2.5T48 PO; +SERT50TA29 PO; +ULTR50TA8 PO
[2021-02-21 17:19] LABS: PERCENT SATURATION 11.1 % (13.2-45.0)
== END ==
LOC: M LAB REF 16:47
PROVIDERS: ATTEND Nurse Practitioner Family
DX: D50.9 Iron deficiency anemia, unspecified (principal)

== ENCOUNTER → 2021-05-24 | Outpatient (REF) | payer OTHER ==
[~2021-05-24] MED LIST changes: -DOXY100C PO; +DOXY100C3 PO
== END ==
LOC: M LAB REF 13:02
PROVIDERS: ATTEND Nurse Practitioner Family
DX: E83.42 Hypomagnesemia (principal)

== ENCOUNTER → 2021-07-13 | Outpatient (REF) | payer OTHER ==
[~2021-07-13] MED LIST changes: -MAXZTA PO; +TRIA75TA2 PO
== END ==
LOC: M SFHCRHEU 14:05
PROVIDERS: ATTEND Internal Medicine
DX: M54.9 Dorsalgia, unspecified (principal)

== ENCOUNTER → 2021-08-24 | Outpatient (REF) | payer OTHER ==
[2021-08-24 17:53] LABS: MAGNESIUM LEVEL 2.3 MG/DL (1.8-2.4); TOTAL PROTEIN 8.1 GM/DL (6.4-8.2)
[2021-08-27 10:52] LABS: ALBUMIN 4.68 GM/DL (3.29-5.55); ALBUMIN % 57.8 % (55.8-66.1); ALPHA-1-GLOBULINS 0.41 GM/DL (0.17-0.41); ALPHA-2-GLOBULINS 0.92 GM/DL (0.42-0.99); ALPHA-2-GLOBULINS % 11.3 % (7.1-11.8); BETA-1-GLOBULINS 0.51 GM/DL (0.28-0.60); BETA-1-GLOBULINS % 6.3 % (4.7-7.2); BETA-2-GLOBULINS 0.47 GM/DL (0.19-0.55); BETA-2-GLOBULINS % 5.8 % (3.2-6.5); GAMMA GLOBULIN % 13.8 % (11.1-18.8); GAMMA GLOBULINS 1.12 GM/DL (0.65-1.58)
== END ==
LOC: M LAB REF 16:50
PROVIDERS: ATTEND Nurse Practitioner Family
DX: E83.52 Hypercalcemia (principal); N18.32 Chronic kidney disease, stage 3b; E83.42 Hypomagnesemia

== ENCOUNTER → 2021-10-12 | Outpatient (CLI) | payer OTHER ==
[~2021-10-12] MED LIST changes: -LISI-898 PO; +LISI5TAB11 PO
== END ==
LOC: M PLAIMG 09:37
PROVIDERS: ATTEND Pain Medicine Interventional Pain Medicine
DX: M54.16 Radiculopathy, lumbar region (principal)

== ENCOUNTER → 2021-11-16 | Outpatient (CLI) | payer OTHER ==
[~2021-11-16] MED LIST changes: +ACET-841 PO; +DUPI300I SC; +FARX1TAB3 PO; +FERR325T3 PO; +GING1CAP PO; +LORA-243 PO; +METO1TAB33 PO; +RENATAB6 PO; +SERT25TA85 PO; +TIZA1TAB12 PO; +TRUL0.5I SC; +ZYLO100T2 PO
== END ==
LOC: M LABSMTC 09:16
PROVIDERS: ATTEND Anesthesiology
DX: Z01.812 Encounter for preprocedural laboratory examination (principal); Z20.822 Contact with and (suspected) exposure to COVID-19

== ENCOUNTER → 2022-03-28 | Outpatient (CLI) | payer OTHER ==
[~2022-03-28] MED LIST changes: +ALBU2.5V10 NEB; -ALBU83IN NEB; +TRIA75TA10 PO; -TRIA75TA2 PO
== END ==
LOC: M RAD 07:41
PROVIDERS: ATTEND Nurse Practitioner Family
DX: E05.00 Thyrotoxicosis with diffuse goiter without thyrotoxic crisis or storm (principal)
CPT/HCPCS: 78070; 78803; A9500

== ENCOUNTER → 2022-04-02 | Outpatient (REF) | payer OTHER ==
[2022-04-02 21:17] LABS: POTASSIUM SERUM 5.6 MEQ/L (3.5-5.1)
== END ==
LOC: M LAB REF 18:26
PROVIDERS: ATTEND Nurse Practitioner Family
DX: N18.32 Chronic kidney disease, stage 3b (principal); E11.22 Type 2 diabetes mellitus with diabetic chronic kidney disease; I12.9 Hypertensive chronic kidney disease with stage 1 through stage 4 chronic kidney disease, or unspecified chronic kidney disease

== ENCOUNTER → 2022-07-09 | Outpatient (CLI) | payer OTHER ==
[~2022-07-09] MED LIST changes: -DULE200A; +MOME13HF7
[2022-07-09 11:24] LABS: HEMOGLOBIN 12.2 g/dl (12.0-15.5); MEAN CORPUSCULAR HGB CONC 32.1 g/dl (32.0-36.5); MEAN CORPUSCULAR VOLUME 93.6 fl (80.0-96.0); PLATELET COUNT, AUTOMATED 195 10^3/uL (150-450); RED BLOOD COUNT 4.06 10^6/uL (4.00-5.40)
[2022-07-09 11:35] LABS: INR 0.85; PROTHROMBIN TIME 11.8 SECONDS (12.5-14.5)
[2022-07-09 11:43] LABS: ERYTHROCYTE SEDIMENTATION RATE 37 mm/hr (0-30)
[2022-07-09 12:16] LABS: ALBUMIN 3.9 GM/DL (3.2-5.2); BILIRUBIN,TOTAL 0.3 MG/DL (0.2-1.0); CREATININE FOR GFR 1.7 MG/DL (0.55-1.30); POTASSIUM SERUM 4.8 MEQ/L (3.5-5.1); TOTAL PROTEIN 7.5 GM/DL (6.4-8.2)
== END ==
LOC: M RAD 10:26
PROVIDERS: ATTEND Orthopaedic Surgery
DX: M17.11 Unilateral primary osteoarthritis, right knee (principal)

== ENCOUNTER → 2024-03-31 | Outpatient (REF) | payer OTHER ==
[~2024-03-31] MED LIST changes: -HYDR-3910 PO; +HYDR25TA87 PO
[2024-03-31 19:26] LABS: ALBUMIN 4.7 G/DL (3.2-5.2); BILIRUBIN,DIRECT 0.1 MG/DL (<0.4); BILIRUBIN,TOTAL 0.5 MG/DL (0.3-1.2)
== END ==
LOC: M LAB REF 17:10
PROVIDERS: ATTEND Nurse Practitioner Family
DX: R82.2 Biliuria (principal)

== ENCOUNTER → 2024-09-30 | Outpatient (REF) | payer OTHER ==
[2024-09-30 18:27] LABS: CHOLESTEROL RISK RATIO 3.69 (<5); HDL CHOLESTEROL 65.3 MG/DL (>40); LDL CHOLESTEROL 102.9 MG/DL (<100); NON-HDL-C 175.7 MG/DL
== END ==
LOC: M LAB REF 17:41
PROVIDERS: ATTEND Physician Assistant
DX: E78.2 Mixed hyperlipidemia (principal)

== ENCOUNTER → 2024-12-30 | Outpatient (REF) | payer OTHER ==
[2024-12-30 18:47] LABS: ALBUMIN 4.4 G/DL (3.2-5.2); BILIRUBIN,DIRECT 0.1 MG/DL (<0.4); BILIRUBIN,TOTAL 0.4 MG/DL (0.3-1.2); CHOLESTEROL RISK RATIO 2.51 (<5); HDL CHOLESTEROL 69.3 MG/DL (>40); LDL CHOLESTEROL 51.1 MG/DL (<100); NON-HDL-C 104.7 MG/DL; TOTAL PROTEIN 7.7 G/DL (5.7-8.2)
== END ==
LOC: M LAB REF 17:39
PROVIDERS: ATTEND Physician Assistant
DX: E78.2 Mixed hyperlipidemia (principal)

== ENCOUNTER → 2025-04-06 | Outpatient (REF) | payer OTHER ==
[~2025-04-06] MED LIST changes: -GING1CAP PO; +GING550C4 PO
[2025-04-06 18:44] LABS: ALT/SGPT 83.0 U/L (7.0-40); AST/SGOT 64.0 U/L (<34)
== END ==
LOC: M LAB REF 18:01
PROVIDERS: ATTEND Physician Assistant
DX: E78.2 Mixed hyperlipidemia (principal)

== ENCOUNTER → 2025-07-13 | Outpatient (REF) | payer OTHER ==
[2025-07-13 18:15] LABS: ALT/SGPT 56.0 U/L (7.0-40); AST/SGOT 48.0 U/L (<34); CALCIUM LEVEL 9.3 MG/DL (8.3-10.6); CARBON DIOXIDE LEVEL 27.0 MMOL/L (20-31); CHLORIDE LEVEL 100.0 MMOL/L (98-107); CHOLESTEROL LEVEL 172.0 MG/DL (<200); CHOLESTEROL RISK RATIO 2.33 (<5); CREATININE FOR GFR 1.43 MG/DL (0.55-1.30); GLOMERULAR FILTRATION RATE 42.0 (>45); LDL CHOLESTEROL 51.4 MG/DL (<100); NON-HDL-C 98.2 MG/DL; POTASSIUM SERUM 4.1 MMOL/L (3.5-5.1); SODIUM LEVEL 140.0 MMOL/L (136-145); TRIGLYCERIDES LEVEL 234.0 MG/DL (<150)
== END ==
LOC: M LAB REF 17:25
PROVIDERS: ATTEND Physician Assistant
DX: I50.42 Chronic combined systolic (congestive) and diastolic (congestive) heart failure (principal); E78.2 Mixed hyperlipidemia

== ENCOUNTER → 2025-07-21 | Outpatient (CLI) | payer OTHER | LOC: M PLAIMG 08:15 | PROVIDERS: ATTEND Physician Assistant | DX: I50.42 Chronic combined systolic (congestive) and diastolic (congestive) heart failure (principal); I42.0 Dilated cardiomyopathy ==